=== PATIENT | female | born 1965 | race Caucasian/White ===

== ENCOUNTER → 2021-12-20 | Outpatient (CLI) | payer BC, SELFPAY ==
[2021-12-20 21:21] LABS: Absolute Lymphocyte Count 4.52 X10^3/uL (0.83-4.51); Absolute Neutrophil Count 5.8 X10^3/uL (2.0-7.7); Basophil# 0.07 X10^3/uL; Basophil% 0.6 % (0-1); Eosinophil# 0.12 X10^3/uL; Hematocrit 37.1 % (37-47); Hemoglobin 13.2 g/dL (12.0-15.0); Lymphocyte # 4.52 X10^3/ul (0.83-4.51); Lymphocyte % 38.8 % (19-41); Mean Corp Hgb Conc 35.6 g/dL (32-36); Mean Corpuscular Volume 89.8 fL (81-99); Mean Platelet Vol. 10.7 fl (6.2-12.0); Monocyte# 1.13 X10^3/uL; Monocyte% 9.7 % (0-10); NRBC Flagged by Analyzer 0 % (0-5); Neutrophil # 5.76 X10^3/uL (2.7-7.7); Neutrophil % 49.6 % (47-70); Platelet Count 375 K/mm3 (150-450); RBC Distribution Width CV 13.1 % (11.6-14.6); Red Blood Count 4.13 M/mm3 (4.2-5.4); White Blood Count 11.6 K/mm3 (4.4-11.0)
[2021-12-20 21:45] LABS: ALB/GLOB Ratio 1.2 RATIO (0.9-2.4); AST(SGOT) 16 U/L (15-37); Alanine Aminotransfer ALT/SGPT 28 U/L (13-56); Albumin, Serum 4.3 g/dL (3.2-5.0); Alkaline Phosphatase 58 U/L (45-117); Anion Gap 8 (5-15); BUN 12 mg/dL (7-18); BUN/Creat Ratio 14.8 RATIO (10-20); Calcium,Total 9.7 mg/dL (8.5-10.1); Chloride 98 mmol/L (98-107); Cholesterol 206 mg/dL (200); Creatinine, Serum 0.81 mg/dL (0.55-1.02); EST Glomerular Filtration Rate 77 mL/min (>60); Est Glom Filt Rate - Afr Amer 93 mL/min (>60); Globulin 3.6 g/dL (2.2-4.2); Glucose 98 mg/dL (74-106); High Density Lipoprotein 60 mg/dL; Protein, Total 7.9 g/dL (6.4-8.2); Sodium Level 134 mmol/L (136-145); Thyroid Stim Hormone (TSH) 0.88 uIU/mL (0.358-3.74); Triglycerides 156 mg/dL; Very Low Density Lipoprotein 31 mg/dL (5-40)
[2021-12-25 18:42] LABS: Vitamin D 1,25-Dihydroxy 22.4 pg/mL (24.8-81.5)
== END | disposition home or self-care (01) ==
PROVIDERS: Referring Provider Nurse Practitioner; Visit Provider Nurse Practitioner
DX: Z00.00 Encounter for general adult medical examination without abnormal findings (principal)
CPT/HCPCS: 80053; 80061; 82652; 84443; 85025

== ENCOUNTER → 2022-12-20 | Outpatient (CLI) | payer BC, SELFPAY ==
[2022-12-20 21:28] LABS: Absolute Lymphocyte Count 3.93 X10^3/uL (0.83-4.51); Basophil# 0.07 X10^3/uL; Basophil% 0.7 % (0-1); Eosinophil# 0.18 X10^3/uL; Eosinophils% 1.8 % (0-5); Hematocrit 38.3 % (37-47); Hemoglobin 12.9 g/dL (12.0-15.0); Lymphocyte # 3.93 X10^3/ul (0.83-4.51); Lymphocyte % 38.8 % (19-41); Mean Corp Hgb Conc 33.7 g/dL (32-36); Mean Corpuscular Hgb 30.9 pg (27.0-32.0); Mean Corpuscular Volume 91.8 fL (81-99); Mean Platelet Vol. 10.8 fl (6.2-12.0); Monocyte% 8.9 % (0-10); NRBC Flagged by Analyzer 0 % (0-5); Neutrophil # 5.02 X10^3/uL (2.7-7.7); Neutrophil % 49.5 % (47-70); Platelet Count 338 K/mm3 (150-450); RBC Distribution Width CV 13.2 % (11.6-14.6); RBC Distribution Width SD 44.4 fl (35.1-43.9); Red Blood Count 4.17 M/mm3 (4.2-5.4); White Blood Count 10.1 K/mm3 (4.4-11.0)
[2022-12-20 21:51] LABS: ALB/GLOB Ratio 1.1 RATIO (0.9-2.4); AST(SGOT) 15 U/L (15-37); Alanine Aminotransfer ALT/SGPT 27 U/L (13-56); Alkaline Phosphatase 60 U/L (45-117); Anion Gap 7 (5-15); BUN 8 mg/dL (7-18); BUN/Creat Ratio 10.7 RATIO (10-20); Calcium,Total 9.2 mg/dL (8.5-10.1); Chloride 103 mmol/L (98-107); Cholesterol 208 mg/dL (200); Creatinine, Serum 0.75 mg/dL (0.55-1.02); EST Glomerular Filtration Rate 85 mL/min (>60); Est Glom Filt Rate - Afr Amer 103 mL/min (>60); Globulin 3.6 g/dL (2.2-4.2); Glucose 101 mg/dL (74-106); High Density Lipoprotein 53 mg/dL; Potassium 2.9 mmol/L (3.5-5.1); Protein, Total 7.6 g/dL (6.4-8.2); Sodium Level 139 mmol/L (136-145); Thyroid Stim Hormone (TSH) 3.99 uIU/mL (0.358-3.74); Triglycerides 151 mg/dL; Very Low Density Lipoprotein 30 mg/dL (5-40)
== END | disposition home or self-care (01) ==
PROVIDERS: Visit Provider Nurse Practitioner
DX: Z00.00 Encounter for general adult medical examination without abnormal findings (principal)
CPT/HCPCS: 80053; 80061; 84443; 85025

== ENCOUNTER → 2023-04-12 | Outpatient (CLI) | payer BC, SELFPAY ==
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
[2023-04-12 22:18] LABS: Thyroid Stim Hormone (TSH) 0.84 uIU/mL (0.358-3.74)
== END | disposition home or self-care (01) ==
PROVIDERS: Referring Provider Nurse Practitioner; Visit Provider Nurse Practitioner
DX: E03.9 Hypothyroidism, unspecified (principal)
CPT/HCPCS: 84443

== ENCOUNTER → 2023-12-19 | Outpatient (CLI) | payer BC, SELFPAY ==
[2023-12-19 23:51] LABS: Absolute Lymphocyte Count 3.11 X10^3/uL (0.83-4.51); Absolute Neutrophil Count 4.3 X10^3/uL (2.0-7.7); Basophil# 0.04 X10^3/uL; Basophil% 0.5 % (0-1); Eosinophil# 0.06 X10^3/uL; Eosinophils% 0.7 % (0-5); Hematocrit 39.1 % (37-47); Hemoglobin 12.9 g/dL (12.0-15.0); Lymphocyte # 3.11 X10^3/ul (0.83-4.51); Lymphocyte % 37.9 % (19-41); Mean Corpuscular Hgb 29.9 pg (27.0-32.0); Mean Corpuscular Volume 90.7 fL (81-99); Mean Platelet Vol. 10.8 fl (6.2-12.0); Monocyte# 0.69 X10^3/uL; Monocyte% 8.4 % (0-10); NRBC Flagged by Analyzer 0 % (0-5); Neutrophil # 4.28 X10^3/uL (2.7-7.7); Neutrophil % 52.3 % (47-70); Platelet Count 325 K/mm3 (150-450); RBC Distribution Width CV 13.1 % (11.6-14.6); RBC Distribution Width SD 43.8 fl (35.1-43.9); Red Blood Count 4.31 M/mm3 (4.2-5.4); White Blood Count 8.2 K/mm3 (4.4-11.0)
[2023-12-20 00:15] LABS: ALB/GLOB Ratio 1.2 RATIO (0.9-2.4); AST(SGOT) 15 U/L (15-37); Alanine Aminotransfer ALT/SGPT 28 U/L (13-56); Alkaline Phosphatase 58 U/L (45-117); Anion Gap 7 (5-15); BUN 8 mg/dL (7-18); BUN/Creat Ratio 10.7 RATIO (10-20); Calcium,Total 9.5 mg/dL (8.5-10.1); Chloride 99 mmol/L (98-107); Cholesterol 209 mg/dL (200); Creatinine, Serum 0.75 mg/dL (0.55-1.02); EST Glomerular Filtration Rate 84 mL/min (>60); Est Glom Filt Rate - Afr Amer 102 mL/min (>60); Globulin 3.3 g/dL (2.2-4.2); Glucose 106 mg/dL (74-106); High Density Lipoprotein 57 mg/dL; Potassium 3.1 mmol/L (3.5-5.1); Protein, Total 7.3 g/dL (6.4-8.2); Sodium Level 135 mmol/L (136-145); Triglycerides 130 mg/dL; Very Low Density Lipoprotein 26 mg/dL (5-40)
== END | disposition home or self-care (01) ==
PROVIDERS: Referring Provider Nurse Practitioner; Visit Provider Nurse Practitioner
DX: Z00.00 Encounter for general adult medical examination without abnormal findings (principal)
CPT/HCPCS: 80053; 80061; 84443; 85025

== ENCOUNTER → 2025-01-02 | Outpatient (CLI) | payer BC, SELFPAY ==
--- OUTSIDE RECORDS SUMMARY | 2025-01-02 21:49 | XMS RPT_ITS | CCD ---
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 mg tablet Take 1 tablet by mouth every 8 hours as needed for pain. cholecalciferol, vitamin D3, (VITAMIN D3 ORAL) Take by mouth. amLODIPine (NORVASC) 10 mg tablet levothyroxine (SYNTHROID) 100 mcg tablet losartan (COZAAR) 100 mg tablet hydroCHLOROthiazide (HYDRODIURIL, ESIDRIX) 25 mg tablet oxyCODONE IR (ROXICODONE) 5 mg immediate release tablet Take 1 tablet by mouth every 6 hours as needed for pain for up to 3 days. Lactobacillus acidophilus (PROBIOTIC ORAL) Take by mouth. ascorbic acid, vitamin C, (VITAMIN C) 500 mg tablet Take by mouth. Lacto.acidophilus-Bif. animalis 32 billion cell cap Take by mouth. flaxseed oil (OMEGA 3 ORAL) Take by mouth. (Patient not taking: Reported on 05/10/2022) ZINC ORAL Take by mouth. MAGNESIUM ORAL Take by mouth. MELATONIN ORAL Take by mouth. potassium chloride SR (MICRO-K) 10 mEq CR capsule I have interviewed and examined the patient. I have reviewed the medical record and/or the pre-anesthesia evaluation, pertinent labs, and test results. This contains updated information obtained within 48 hours of Surgery/Procedure. SIGNATURE: Sander Sandoval MD PATIENT NAME: Sharifa Kyle DATE: December 18, 2024 TIME: 12:59 PM CSN: [id number] [facility] BRIEF OP NOTon 12-18-2024 BRIEF OP NOT HNO ID: [id number] Author: ISAIAH BOLES MD Service: Orthopaedic Surgery Author Type: Physician Type: Brief Op Note Filed: 12/18/2024 16:32 Note Text: BRIEF OPERATIVE / PROCEDURE NOTE LOG ID: [id number] SURGERY/PROCEDURE DATE: 12/18/2024 INCISION/PROCEDURE START TIME: 3:09 PM INCISION CLOSE/PROCEDURE END TIME: 4:30 PM SURGEON(S)/PROCEDURALI ST(S) AND LYE MACHINE OPERATOR(S): Surgeons and Role: * Isaiah Boles MD - Primary * John Sterling MD - Resident - Assisting * Juan Rice MD - Resident - Assisting No Additional Staff SURGERY/PROCEDURE(S): 1) ORIF Right Proximal Humerus Fracture ANESTHESIA: General FINDINGS: See operative report for full details FLUIDS: Per anesthesia documentation ESTIMATED BLOOD LOSS: 150 mls ANTIBIOTICS: Ancef 2g IV SPECIMENS: None COMPLICATIONS: None PRE-OP/PRE-PROCEDURE DIAGNOSIS: 1) Four-Part Right Proximal Humerus Fracture, Closed POST-OP/POST-PROCEDURE DIAGNOSIS: 1) Four-Part Right Proximal Humerus Fracture, Closed Post-Operative Plan: -Management per orthopaedic trauma surgery -Sling to the right upper extremity -PT/OT: Non-weightbearing with the right upper extremity -Radha-Operative Antibiotics: Ancef 2g IV -DVT PPX: SCDs; ambulation/mobilizatio n -Post-Operative Imaging: None -Santos: None -Consults: None -Dressings: Mepilex dressing to the right shoulder for 10 days -Pain control; ice to the right shoulder -Disposition: Discharge to home with outpatient orthopaedic follow-up in 3-4 weeks Isaiah Boles MD Orthopaedic Surgery 12/18/2024 4:31 PM [facility] HISTORY PHYSICALon HISTORY PHYSICAL HNO ID: [id number] Author: ISAIAH BOLES MD Service: Orthopaedic Surgery Author Type: Physician Type: H&P Filed: 12/18/2024 14:14 Note Text: ORTHOPAEDIC SURGERY HISTORY AND PHYSICAL Pt: SHARIFA KYLE Date of Service: 12/18/2024 Chief Complaint: Right Proximal Humerus Fracture HPI: 59 year old female sustained a right proximal humerus fracture on 12/15/2024 after a fall. The patient reports severe pain to the right shoulder. The patient denies fevers and chills. The patient has no additional orthopaedic traumatic complaints this time. PAST MEDICAL HISTORY Diagnosis Date Hypertension Thyroid disease PAST SURGICAL HISTORY Procedure Laterality Date HAND SURGERY HX Allergies: Amoxicillin, Codeine, and Venom-Honey Bee No current facility-administered medications for this encounter. FAMILY HISTORY Problem Relation Age of Onset Emphysema Father Heart Sister Negative for family history of bleeding and clotting disorders. SOCIAL HISTORY[1] ROS: 10 pt ROS neg except in HPI O: Vitals: BP 185/95 Pulse 97 Temp 37 ?C (98.6 ?F) (Skin) Resp 18 SpO2 95% Physical Exam: General: AANDO x 3; NAD. Cooperative throughout entire interview Heart: Regular rate and rhythm Chest: Clear to auscultation bilaterally Right Upper Extremity: There are no open wounds nor lacerations about the right shoulder. Compartments of the arm and forearm are soft and compressible. The patient has active AIN (thumb interphalangeal joint flexion), PIN (thumb extension) and ulnar (finger abduction and adduction) motor function. Sensation intact to light touch in the median, radial and ulnar nerve distributions. Brisk capillary refill to the digits of the hand. Labs: BMP: Sodium 134 03/15/2024 Potassium 2.8 03/15/2024 Chloride 95 03/15/2024 CO2 27 03/15/2024 BUN 8 03/15/2024 Creatinine 0.70 03/15/2024 Glucose 122 03/15/2024 CBC: WBC 8.49 03/15/2024 Hemoglobin 13.5 03/15/2024 Hematocrit 39.2 03/15/2024 Platelet Count 320 03/15/2024 Imaging: -X-rays of the right shoulder and CT of the right shoulder from 12/17/2024 demonstrate a comminuted and displaced four-part proximal humerus fracture. A/P: 59 year old female with a right four-part proximal humerus fracture. -Management per orthopaedic trauma surgery -NPO -The risks, limitations, benefits and alternatives to all treatment options including non-operative and operative management of the patient's right proximal humerus fracture were discussed with the patient. The risks of the operation include, but are not limited to, the risks associated with general anesthesia, infection, bleeding, damage to nearby structures (such as arteries, veins, nerves, muscle, tendons, ligaments), chronic pain, post-traumatic arthritis, avascular necrosis, loss of right shoulder range of motion, malunion, nonunion, deep venous thromboses, pulmonary embolism, hardware failure and the need for future operations. The patient elected to proceed with open reduction internal fixation of the right proximal humerus fracture. All questions and concerns were answered and addressed. The informed consent was reviewed. Isaiah Boles MD Orthopaedic Surgery 12/18/2024 2:07 PM [1] Social History Tobacco Use Smoking status: Never Smokeless tobacco: Never Vaping Use Vaping status: Never Used Substance Use Topics Alcohol use: Yes Comment: seldom Drug use: No [facility] NURSING PROGon 12-18-2024 NURSING PROG HNO ID: [id number] Author: MANNY LEBRON RN Service: Nursing Author Type: Registered Nurse Type: Nursing Progress Note Filed: 12/18/2024 20:04 Note Text: Dr Marshall bedside to evaluate patient o2. Has been on RA for 30 min. 93-95%. No complaints from patient. Okay to go home. Pt instructed on continued IS use at home [facility] OPERATIVE NOon 12-18-2024 OPERATIVE NO HNO ID: [id number] Author: ISAIAH BOLES MD Service: Orthopaedic Surgery Author Type: Physician Type: Operative Report Filed: 12/19/2024 06:58 Note Text: OPERATIVE/PROCEDURE REPORT LOG ID: [id number] SURGERY/PROCEDURE DATE: 12/18/2024 INCISION/PROCEDURE START TIME: 3:09 PM INCISION CLOSE/PROCEDURE END TIME: 4:30 PM SURGEON(S)/PROCEDURALI ST(S) AND LYE MACHINE OPERATOR(S): Surgeons and Role: * Isaiah Boles MD - Primary * John Sterling MD - Resident - Assisting * Juan Rice MD - Resident - Assisting No Additional Staff PRE-OP/PRE-PROCEDURE DIAGNOSIS: 1) Right Proximal Humerus Fracture, Closed POST-OP/POST-PROCEDURE DIAGNOSIS: 1) Right Proximal Humerus Fracture, Closed 2) Right Biceps Tendon Injury SURGERY/PROCEDURE(S): 1) Open Treatment of the Right Proximal Humerus Fracture with Internal Fixation Including Repair of the Tuberosities (CPT 89924) 2) Tenodesis of Long Tendon of the Right Biceps (CPT 81982) ANESTHESIA: 1) General ANTIBIOTICS: 1) Ancef 2g IV ESTIMATED BLOOD LOSS: 1) 150 CC FLUIDS: 1) Per Anesthesia Documentation SPECIMENS: 1) None CLINICAL INDICATIONS: 59 year old female sustained a right proximal humerus fracture on 12/15/2024 after a fall. The risks, limitations, benefits and alternatives to all treatment options including non-operative and operative management of the patient's right proximal humerus fracture were discussed with the patient. The risks of the operation include, but are not limited to, the risks associated with general anesthesia, infection, bleeding, damage to nearby structures (such as arteries, veins, nerves, muscle, tendons, ligaments), chronic pain, post-traumatic arthritis, loss of right shoulder range of motion, avascular necrosis, malunion, nonunion, deep venous thromboses, pulmonary embolism, hardware failure and the need for future operations. The patient elected to proceed with open reduction internal fixation of the right proximal humerus fracture. All questions and concerns were answered and addressed. The informed consent was signed. SURGERY/PROCEDURE DETAILS: The patient was met in the pre-operative holding area on 12/18/2024. A pre-operative huddle was conducted with the surgical team. The patient was identified with two patient identifiers (name and date of ). The patient's operative site (right shoulder) was marked. The pre-operative checklist, including review of the informed consent, was reviewed and agreed upon by all members of the surgical team. The patient was transferred to the operating room. The patient was intubated by anesthesia (endotracheal intubation) and positioned supine on a radiolucent table with attention to padding of bony prominences. The patient's right upper extremity and shoulder were pre-cleansed with alcohol, sterilely prepped (ChloraPrep) and draped in standard orthopaedic fashion. A final time out was then conducted in accordance with [facility] General policy. After all members of the surgical team agreed upon the details of the procedure, a deltopectoral approach to the right shoulder was performed with a scalpel. Hemostasis was achieved with electrocautery. The interval between the pectoralis major and the deltoid was developed. Dissection was performed deep. The proximal humerus fracture was identified, delineated with a scalpel and thoroughly irrigated with sterile saline. There was comminution noted to the humeral neck, lesser tuberosity and greater tuberosity. The biceps tendon was found to be partially lacerated by the humeral neck fracture. The biceps tendon was tenodesed to the pectoralis insertion on the humeral shaft with FiberWire suture. The proximal remnant of the biceps tendon was excised. Reduction maneuvers were performed to the proximal humerus fracture using pointed reduction forceps and FiberWire sutures advanced through the rotator cuff insertion on the greater tuberosity fracture fragments and the lesser tuberosity fracture fragments. The reduction was temporarily maintained with multiple 1.6 mm K-wires. AP and lateral right shoulder radiographs demonstrated acceptable fracture reduction. A 3-hole Nazlini proximal humerus plate was applied to the lateral proximal humerus. The plate position was confirmed on AP and lateral right shoulder radiographs. The plate was secured to the humeral shaft with two cortical screws and one locking screw. The plate was secured proximally with nine locking screws into the humeral head. The FiberWire sutures in the rotator cuff insertion on the greater tuberosity fracture fragments and the lesser tuberosity fracture fragments were advanced through the proximal humerus plate and secured over the plate to augment the fixation. Final AP and lateral right shoulder radiographs demonstrated acceptable length, alignment and rotation of the right proximal humerus fracture with acceptable (more content not included)... [facility] XR SHOULDER 2V AP/TRUE AP RT on 12-18-2024 XR SHOULDER 2V AP/TRUE AP RT * * *Final Report* * * DATE OF EXAM: Dec 18 2024 4:19PM BRANDY [id number] - XR SHOULDER 2V AP/TRUE AP RT / PROCEDURE REASON: ORIF * * * * Physician Interpretation * * * * FLUOROSCOPY AND IMAGING: CLINICAL INDICATION: Right proximal humerus fracture. ORIF right proximal humerus fracture. COMPARISON: Right shoulder radiographs 12/17/2024 and 12/15/[address] right shoulder 12/17/2024. FINDINGS: Five fluoroscopic images for intraoperative fluoroscopic guidance. Fluoroscopic Radiation Summary: Plane A, Air Kerma: 9.6 mGy Dose Area Product (DAP): 1905.0 mGy*cm2 Fluoro time: 1:25 min:sec Number of image acquisitions: 5 IMPRESSION: Documentation of intraoperative fluoroscopic guidance as above. Correlate with operative report. Field Observer: MALIA Transcribe Date/Time: Dec 19 2024 6:59A Dictated by : ASAD GOLDEN MD This examination was interpreted and the report reviewed and electronically signed by: ASAD GOLDEN MD on Dec 19 2024 7:05AM EST [id number] [facility] CNOVon 12-17-2024 CNOV Office Visit (AGHWW1 ) SHARIFA KYLE ([id number]) 1965 F Date Time Provider Department 12/17/24 9:45 AM JARAD SEGOVIA [id number] During your visit today, we recorded the following information about you: Respiration Weight Height 18/minute 84.4 kg 1.6 m Jarad Segovia MD 12/17/2024 12:12 PM Signed ORTHOPAEDIC SHOULDER AND ELBOW SERVICE HISTORY AND PHYSICAL EXAM REFERRING PROVIDER: No referring provider defined for this encounter. CHIEF COMPLAINT: The patient is a 59-year-old female presenting for evaluation of a displaced right shoulder fracture. PAIN EVALUATION 12/17/2024 0944 Pain Level: 10 Pain Location: -- r shoulder Description: -- aching Duration Amount of Time: -- 2 Duration Units: Days Frequency: Continuous Sharifa Kyle is a 59-year-old female presenting for evaluation of a right shoulder fracture sustained during a fall. Right Shoulder Fracture: - Sustained a right shoulder fracture on Monday. - Incident occurred while walking two large dogs in a park in [place]; Sharifa lost footing on steps and fell. - Landed with arm extended, impacting the shoulder. - Denies sensation of shoulder dislocation. - Experiencing significant pain, affecting sleep. - Currently using a sling for support. - Taking prescribed extra strength Tylenol and ibuprofen 800 mg for pain management. - History of bilateral knee replacements and spinal surgery with rods and screws. PAST MEDICAL HISTORY: PAST MEDICAL HISTORY Diagnosis Date Hypertension Thyroid disease PAST SURGICAL HISTORY: PAST SURGICAL HISTORY Procedure Laterality Date HAND SURGERY HX SOCIAL HISTORY: SOCIAL HISTORY[1] ALLERGIES: ALLERGIES Allergen Reactions Amoxicillin Rash Codeine Rash Venom-Honey Bee Swelling MEDICATIONS: Current Outpatient Medications on File Prior to Visit Medication Sig cholecalciferol, vitamin D3, (VITAMIN D3 ORAL) Take by mouth. Lactobacillus acidophilus (PROBIOTIC ORAL) Take by mouth. amLODIPine (NORVASC) 10 mg tablet ascorbic acid, vitamin C, (VITAMIN C) 500 mg tablet Take by mouth. Lacto.acidophilus-Bif. animalis 32 billion cell cap Take by mouth. ZINC ORAL Take by mouth. MAGNESIUM ORAL Take by mouth. MELATONIN ORAL Take by mouth. levothyroxine (SYNTHROID) 100 mcg tablet losartan (COZAAR) 100 mg tablet potassium chloride SR (MICRO-K) 10 mEq CR capsule hydroCHLOROthiazide (HYDRODIURIL, ESIDRIX) 25 mg tablet acetaminophen (TYLENOL EXTRA STRENGTH) 500 mg tablet Take 2 tablets by mouth every 8 hours as needed for pain. ibuprofen (MOTRIN) 800 mg tablet Take 1 tablet by mouth every 8 hours as needed for pain. oxyCODONE IR (ROXICODONE) 5 mg immediate release tablet Take 1 tablet by mouth every 6 hours as needed for pain for up to 3 days. flaxseed oil (OMEGA 3 ORAL) Take by mouth. (Patient not taking: Reported on 05/10/2022) No current facility-administered medications on file prior to visit. PHYSICAL EXAMINATION: Resp 18 Ht 160 cm (5' 3) Wt 84.4 kg (186 lb) BMI 32.95 kg/m? EXAM: Shoulder Musculoskeletal Exam Inspection Right Ecchymosis: moderate Peripheral edema: mild Atrophy: none Symmetry: symmetric Masses: none Palpation Right Crepitus: no crepitus Increased warmth: none Tenderness: present Anterior shoulder: moderate Posterior shoulder: moderate Clavicle: none AC joint: none Sternoclavicular joint: none Rotator cuff: mild Greater tuberosity: moderate Trapezius: mild Medial scapula: none Superior pole of scapula: none Inferior pole of scapula: none Bicipital groove: moderate Proximal biceps: moderate Range of Motion Right Active ROM: abnormal and pain. Passive ROM: abnormal and pain. Neurovascular Right Right shoulder nerve sensation is normal. Axillary nerve sensory distribution: normal Scapula Right Right shoulder scapula is normal. Position: normal General Constitutional: appears stated age Labored breathing: no Psychiatric: normal mood and affect and no acute distress Neurological: alert and oriented x3 Skin: intact IMAGING: I ordered and interpreted radiographs of the right shoulder including AP, outlet, axillary views. There is a displaced greater tuberosity fracture with wide separation. Possible comminuted lesser tuberosity fracture. No obvious humeral neck fracture. ASSESSMENT AND PLAN: Encounter Diagnosis ICD-10-CM 1. Right shoulder pain, unspecified chronicity M25.511 XR SHOULDER 3V AP/Y VIEW/AXILLARY RIGHT (AK) 2. Closed fracture of right shoulder, initial encounter S42.91XA CT SHOULDER WO IVCON RIGHT 3. Closed displaced fracture of greater tuberosity of right humerus, initial encounter S42.251A 1. Right shoulder pain, unspecified chronicity (M25.511) 2. Closed fracture of right shoulder, initial encounter (S42.91XA) 3. Closed displaced fracture (more content not included)... [facility] Eliu 12-17-2024 DAVIDN Telephone (AGPOB1) SHARIFA KYLE ([id number]) 1965 F Date Time Provider Department 12/17/24 ISAIAH BOLES AGPOB1 During your visit today, we recorded the following information about you: Flakita Garcia 12/17/2024 3:54 PM Signed I called patient and talked to her and her . They are aware they will get a call in the am with the arrival time. Have you completed the OME Survey via [employer]? unknown Procedure is scheduled for:12-18 @ ? Arrival time:? NPO after midnight. Please bring walker, crutches, braces or slings if applicable. 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 for pain. - acetaminophen (TYLENOL EXTRA STRENGTH) 500 mg tablet Take 2 tablets by mouth every 8 hours as needed for pain. - ibuprofen (MOTRIN) 800 mg tablet Take 1 tablet by mouth every 8 hours as needed for pain. - oxyCODONE IR (ROXICODONE) 5 mg immediate release tablet Take 1 tablet by mouth every 6 hours as needed for pain for up to 3 days. - cholecalciferol, vitamin D3, (VITAMIN D3 ORAL) Take by mouth. - Lactobacillus acidophilus (PROBIOTIC ORAL) Take by mouth. - amLODIPine (NORVASC) 10 mg tablet - ascorbic acid, vitamin C, (VITAMIN C) 500 mg tablet Take by mouth. - Lacto.acidophilus-Bif. animalis 32 billion cell cap Take by mouth. - flaxseed oil (OMEGA 3 ORAL) Take by mouth. - ZINC ORAL Take by mouth. - MAGNESIUM ORAL Take by mouth. - MELATONIN ORAL Take by mouth. - levothyroxine (SYNTHROID) 100 mcg tablet - losartan (COZAAR) 100 mg tablet - potassium chloride SR (MICRO-K) 10 mEq CR capsule - hydroCHLOROthiazide (HYDRODIURIL, ESIDRIX) 25 mg tablet Problem List As Of Date: 12/17/2024 (None) Encounter Status:Closed by FLAKITA GARCIA on 12/17/24 [facility] CT SHOULDER WO IVCON RTon CT SHOULDER WO IVCON RT * * *Final Report* * * DATE OF EXAM: Dec 17 2024 6:38PM [facility] 0090 - CT SHOULDER WO IVCON RT / PROCEDURE REASON: Closed fracture of right shoulder, initial encounter * * * * Physician Interpretation * * * * CT RIGHT SHOULDER WITHOUT IV CONTRAST: CLINICAL INDICATION: 59-year-old female with right shoulder fracture following recent mechanical fall. TECHNIQUE: A series of axial CT images are obtained of the right shoulder from above the acromioclavicular joint through the scapula with coronal and sagittal reformations. CT Radiation dose: Integrated Dose-length product (DLP) for this visit = 412 mGy*cm. CT Dose Reduction Employed: No dose reduction techniques were required COMPARISON: Right shoulder radiographs 12/17/2024 and 12/15/[address] chest 11/01/2021. FINDINGS: Acute, comminuted, mild impacted fracture of the humeral head and neck. Comminuted lesser tuberosity fracture. Comminuted, mild displaced greater tuberosity fracture. Glenohumeral articulation is maintained. There are discrete sclerotic foci within the humeral head and bony glenoid, likely bone islands. Acromioclavicular articulation is maintained. There is no acute scapular fracture. There is skin thickening and infiltration of subcutaneous fat anterior proximal upper arm. IMPRESSION: Comminuted fracture of the humeral head/neck. A stat reading is made available at time of dictation as requested.. Field Observer: PSCB Transcribe Date/Time: Dec 18 2024 8:12A Dictated by : ASAD GOLDEN MD This examination was interpreted and the report reviewed and electronically signed by: ASAD GOLDEN MD on Dec 18 2024 8:33AM EST [id number] [facility] ALLIED HEALTHon 12-15-2024 ALLIED HEALTH HNO ID: [id number] Author: ?, ?, ? Service: ? Author Type: ? Type: Allied Health Filed: 12/15/2024 15:33 Note Text: Radiology Service Progress Note PATIENT NAME: Sharifa Kyle DATE OF SERVICE: December 15, 2024 TIME: 3:33 PM PATIENT IDENTITY VERIFICATION COMPLETED USING TWO (2) IDENTIFIERS: Name and Date of confirmed by patient verbally and Name and Date of confirmed by identification band. FALL SCREENING: Has the patient had 2 falls in the last year or 1 fall with injury or currently using an Ambulatory Assistive Device (Walker, Cane, Wheelchair, Crutches, etc.)? Emergency Room Patient: Screened in ED PATIENT GENDER DATA: Assigned female at . status: : No status: NO. PATIENT RELEVANT IMPLANT DATA REVIEWED: Not Applicable PATIENT PRESENTS WITH AN IMPLANTABLE OR ATTACHED ELECTRICIAN HELPER: No RADIOLOGY DEPARTMENT: General X-ray: Exam(s) Completed: Upper Extremity X-Ray(s): Shoulder, AP / TRUE AP right PERIPHERAL IV DATA: Not applicable SIGNED BY: Amrita Green December 15, 2024 3:33 PM [facility] ED PROV NOTEon 12-15-2024 ED PROV NOTE HNO ID: [id number] Author: PAULA GOLD PA-C Service: Emergency Medicine Author Type: Physician Vessel Operator Type: ED Provider Notes Filed: 12/15/2024 16:34 Note Text: ED Provider Note Patient Name: Sharifa Kyle : 1965 SERVICE DATE: 12/15/24 History Patient presents with: Fall Shoulder Injury: Pt presents to the ED from a trail. Pt was walking her dog and he went down some concrete steps too fast and she fell forward and thinks she dislocated her shoulder. Pt denies head injury or LOC. Pt has no other complaints at this time. 59-year-old white female that presents to the emergency room with her via personal vehicle for concerns of a dislocated right shoulder. The patient states that she was in [place] just prior to arrival and her large dog pulled her down some concrete steps. The patient states that when she felt her right upper extremity was in an extended position. The patient is right-handed dominant. She denies any head strike or loss consciousness. No neck or back pain. No other complaints or injuries. She does have a history of thyroid disease and hypertension. 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 Right shoulder injury All other systems reviewed and are negative. Physical Exam Vitals [12/15/24 1451] BP Pulse Temp Temp src Resp SpO2 Weight Height 152/85 88 36.4 ?C (97.6 ?F) Oral 18 99 % 84.4 kg (186 lb) -- Physical Exam Vitals and nursing note reviewed. Exam conducted with a inserter present (Staff and ). Constitutional: General: She is awake. She is in acute distress. Appearance: Normal appearance. She is well-developed, well-groomed and normal weight. She is not ill-appearing, toxic-appearing or diaphoretic. HENT: Head: Normocephalic and atraumatic. Jaw: There is normal jaw occlusion. Right Ear: Hearing, tympanic membrane, ear canal and external ear normal. Left Ear: Hearing, tympanic membrane, ear canal and external ear normal. Nose: Nose normal. Mouth/Throat: Lips: [place]. Mouth: Mucous membranes are moist. Pharynx: Oropharynx is clear. Uvula midline. Eyes: General: Lids are normal. Vision grossly intact. Extraocular Movements: Extraocular movements intact. Conjunctiva/sclera: Conjunctivae normal. Pupils: Pupils are equal, round, and reactive to light. Neck: Trachea: Trachea and phonation normal. Meningeal: Brudzinski's sign and Kernig's sign absent. Cardiovascular: Rate and Rhythm: Normal rate and regular rhythm. Pulses: Normal pulses. Dorsalis pedis pulses are 2+ on the right side and 2+ on the left side. Posterior tibial pulses are 2+ on the right side and 2+ on the left side. Heart sounds: Normal heart sounds. No murmur heard. Pulmonary: Effort: Pulmonary effort is normal. Breath sounds: Normal breath sounds and air entry. No stridor. Abdominal: General: Abdomen is flat. Bowel sounds are normal. Palpations: Abdomen is soft. Tenderness: There is no abdominal tenderness. Musculoskeletal: Right shoulder: Swelling, tenderness and bony tenderness present. No deformity, effusion, laceration or crepitus. Decreased range of motion. Normal strength. Normal pulse. Right upper arm: Normal. Right elbow: Normal. Right forearm: Normal. Right wrist: Normal. Right hand: Normal. Arms: Cervical back: Full passive range of motion without pain, normal range of motion and neck supple. Right lower leg: No edema. Left lower leg: No edema. Lymphadenopathy: Cervical: No cervical adenopathy. Skin: General: Skin is warm and dry. Capillary Refill: Capillary refill takes less than 2 seconds. Findings: No rash. Neurological: General: No focal deficit present. Mental Status: She is alert and oriented to person, place, and time. Mental status is at baseline. GCS: GCS eye subscore is 4. GCS verbal subscore is 5. GCS motor subscore is 6. Cranial Nerves: No cranial nerve deficit. Sensory: Sensation is intact. Motor: Motor function is intact. Coordination: Coordination is intact. Gait: Gait is intact. Comments: Normal neuro exam, at baseline Psychiatric: Attention and Perception: Attention and perception normal. Mood and Affect: Mood and affect normal. Speech: Speech normal. Behavior: Behavior normal. Behavior is cooperative. Thought Content: Thought content normal. Cognition and Memory: Cognition and memory normal. Judgment: Judgment normal. Diagnostic Testing ED Labs Ordered and Reviewed - No data to displa (more content not included)... Normal [facility] XR SHLDR >/=3V AP/AGGIE AP/OTH R RTon 12-15-2024 XR SHLDR >/=3V AP/AGGIE AP/OTHR RT * * *Final Report* * * DATE OF EXAM: Dec 15 2024 3:29PM MDX 5253 - XR SHLDR >/=3V AP/AGGIE AP/OTHR RT / PROCEDURE REASON: Trauma * * * * Physician Interpretation * * * * EXAMINATION: XR SHLDR >/=3V AP/AGGIE AP/OTHR RT CLINICAL HISTORY: Trauma Technique: XR SHLDR >/=3V AP/AGGIE AP/OTHR RT -- NOT APPLICABLE with 3 views on 3 images Comparison: None RESULT: Comminuted fracture of the right humeral head. No dislocation. Joint spaces are maintained. IMPRESSION: Comminuted fracture of the right humeral head Field Observer: MALIA Transcribe Date/Time: Dec 15 2024 4:02P Dictated by : CUCA GARAY MD This examination was interpreted and the report reviewed and electronically signed by: CUCA GARAY MD on Dec 15 2024 4:03PM EST [id number] [facility] ALLIED HEALTHon 03-15-2024 [facility] HNO ID: [id number] Author: CLARISSA VIGIL RT(R) Service: Radiology Author Type: Technologist Type: Allied Health Filed: 03/15/2024 12:56 Note Text: Radiology Service Progress Note PATIENT NAME: Sharifa Kyle DATE OF SERVICE: March 15, 2024 TIME: 12:56 PM PATIENT IDENTITY VERIFICATION COMPLETED USING TWO (2) IDENTIFIERS: Name and Date of confirmed by patient verbally. FALL SCREENING: Has the patient had 2 falls in the last year or 1 fall with injury or currently using an Ambulatory Assistive Device (Walker, Cane, Wheelchair, Crutches, etc.)? Emergency Room Patient: Screened in ED PATIENT GENDER DATA: Assigned female at . status: : No status: NO. PATIENT RELEVANT IMPLANT DATA REVIEWED: Not Applicable PATIENT PRESENTS WITH AN IMPLANTABLE OR ATTACHED ELECTRICIAN HELPER: No RADIOLOGY DEPARTMENT: General X-ray: Exam(s) Completed: Chest X-Ray PERIPHERAL IV DATA: Not applicable SIGNED BY: RT Yanni(R) March 15, 2024 12:56 PM [facility] CBC W Auto Differential pane l (Bld)on 03-15-2024 Basophils (Bld) [#/Vol] 0.06 10*3/uL Normal <0.11 [facility] Comment on above: Order Comment: Speci cuco Type: BLOOD SPECIMEN Ordering Facility: [facility] Address: [address] [place] [address] Performed By: #### 5 7021-8 #### [facility] CLIA [id number] [address] [place] [id number] [place] Basophils/100 WBC (Bld) 0.7 % Normal [facility] Comment on above: Order Comment: Speci men Type: BLOOD SPECIMEN Ordering Facility: [facility] Address: [address] [place] [address] Performed By: #### 5 7021-8 #### [facility] CLIA [id number] [address] Differential cell count method Nom (Bld) Auto Normal [facility] Comment on above: Order Comment: Speci men Type: BLOOD SPECIMEN Ordering Facility: [facility] Address: [address] [place] [address] Performed By: #### 5 7021-8 #### [facility] CLIA [id number] [address] [place] [address] [place] Eosinophils (Bld) [#/Vol] 10*3/uL Normal <0.46 [facility] Comment on above: Order Comment: Speci men Type: BLOOD SPECIMEN Ordering Facility: [facility] Address: [address] [place] [address] Performed By: #### 5 7021-8 #### [facility] CLIA [id number] [address] [place] Eosinophils/100 WBC (Bld) 0.1 % Normal [facility] Comment on above: Order Comment: Speci men Type: BLOOD SPECIMEN Ordering Facility: [facility] Address: [address] [place] [address] Performed By: #### 5 7021-8 #### [facility] CLIA [id number] [address] [place] Erythrocyte distribution width (RBC) [Ratio] 13.2 % Normal 11.5-15.0 [facility] Comment on above: Order Comment: Speci men Type: BLOOD SPECIMEN Ordering Facility: [facility] Address: [address] [place] [address] Performed By: #### 5 7021-8 #### [facility] CLIA [id number] [address] [place] Hematocrit (Bld) [Volume fraction] 39.2 % Normal 36.0-46.0 [facility] Comment on above: Order Comment: Speci men Type: BLOOD SPECIMEN Ordering Facility: [facility] Address: [address] [place] [address] Performed By: #### 5 7021-8 #### [facility] CLIA [id number] [address] [place] [address] [place] Hemoglobin (Bld) [Mass/Vol] 13.5 g/dL Normal 11.5-15.5 [facility] Comment on above: Order Comment: Speci men Type: BLOOD SPECIMEN Ordering Facility: [facility] Address: [address] [place] [address] Performed By: #### 5 7021-8 #### [facility] CLIA [id number] [address] [place] [address] [place] Immature granulocytes (Bld) [#/Vol] 0.03 10*3/uL Normal <0.10 [facility] Comment on above: Order Comment: Speci men Type: BLOOD SPECIMEN Ordering Facility: [facility] Address: [address] [place] [address] Performed By: #### 5 7021-8 #### [facility] CLIA [id number] [address] [place] Immature granulocytes/100 WBC (Bld) 0.4 % Normal [facility] Comment on above: Order Comment: Speci men Type: BLOOD SPECIMEN Ordering Facility: [facility] Address: [address] [place] [address] Performed By: #### 5 7021-8 #### [facility] CLIA [id number] [address] [place] Lymphocytes (Bld) [#/Vol] 1.49 10*3/uL Normal 1.00-4.00 [facility] Comment on above: Order Comment: Speci men Type: BLOOD SPECIMEN Ordering Facility: [facility] Address: [address] [place] [address] Performed By: #### 5 7021-8 #### [facility] CLIA [id number] [address] [place] Lymphocytes/100 WBC (Bld) 17.6 % Normal [facility] Comment on above: Order Comment: Speci men Type: BLOOD SPECIMEN Ordering Facility: [facility] Address: [address] [place] [address] Performed By: #### 5 7021-8 #### [facility] CLIA [id number] [address] MCH (RBC) [Entitic mass] 30.5 pg Normal 26.0-34.0 [facility] Comment on above: Order Comment: Speci men Type: BLOOD SPECIMEN Ordering Facility: [facility] Address: [address] [place] [address] Performed By: #### 5 7021-8 #### [facility] CLIA [id number] [address] [place] MCHC (RBC) [Mass/Vol] 34.4 g/dL Normal 30.5-36.0 [facility] Comment on above: Order Comment: Speci men Type: BLOOD SPECIMEN Ordering Facility: [facility] Address: [address] [place] [address] Performed By: #### 5 7021-8 #### [facility] CLIA [id number] [address] MCV (RBC) [Entitic vol] 88.5 fL Normal 80.0-100.0 [facility] Comment on above: Order Comment: Speci men Type: BLOOD SPECIMEN Ordering Facility: [facility] Address: [address] [place] [address] Performed By: #### 5 7021-8 #### [facility] CLIA [id number] [address] [place] Monocytes (Bld) [#/Vol] 1.09 10*3/uL High <0.87 [facility] Comment on above: Order Comment: Speci men Type: BLOOD SPECIMEN Ordering Facility: [facility] Address: [address] [place] [address] Performed By: #### 5 7021-8 #### [facility] CLIA [id number] [address] Monocytes/100 WBC (Bld) 12.8 % Normal [facility] Comment on above: Order Comment: Speci men Type: BLOOD SPECIMEN Ordering Facility: [facility] Address: [address] [place] [address] Performed By: #### 5 7021-8 #### [facility] CLIA [id number] [address] [place] [address] [place] Neutrophils (Bld) [#/Vol] 5.81 10*3/uL Normal 1.45-7.50 [facility] Comment on above: Order Comment: Speci men Type: BLOOD SPECIMEN Ordering Facility: [facility] Address: [address] [place] [address] Performed By: #### 5 7021-8 #### [facility] CLIA [id number] [address] [place] Neutrophils/100 WBC (Bld) 68.4 % Normal [facility] Comment on above: Order Comment: Speci men Type: BLOOD SPECIMEN Ordering Facility: [facility] Address: [address] [place] [address] Performed By: #### 5 7021-8 #### [facility] CLIA [id number] [address] [place] Nucleated RBC (Bld) [#/Vol] 10*3/uL Normal <0.01 [facility] Comment on above: Order Comment: Speci men Type: BLOOD SPECIMEN Ordering Facility: [facility] Address: [address] [place] [address] Performed By: #### 5 7021-8 #### [facility] CLIA [id number] [address] OF [facility] Nucleated RBC/100 WBC (Bld) [Ratio] 0.0 /100 WBC Normal [facility] Comment on above: Order Comment: Speci men Type: BLOOD SPECIMEN Ordering Facility: [facility] Address: [address] [place] [address] Performed By: #### 5 7021-8 #### [facility] CLIA [id number] [address] [place] Platelet mean volume (Bld) [Entitic vol] 10.0 fL Normal 9.0-12.7 [facility] Comment on above: Order Comment: Speci men Type: BLOOD SPECIMEN Ordering Facility: [facility] Address: [address] [place] [address] Performed By: #### 5 7021-8 #### [facility] CLIA [id number] [address] [place] Platelets (Bld) [#/Vol] 320 10*3/uL Normal 150-400 [facility] Comment on above: Order Comment: Speci men Type: BLOOD SPECIMEN Ordering Facility: [facility] Address: [address] [place] [address] Performed By: #### 5 7021-8 #### [facility] CLIA [id number] [address] [place] RBC (Bld) [#/Vol] 4.43 10*6/uL Normal 3.90-5.20 [facility] Comment on above: Order Comment: Speci men Type: BLOOD SPECIMEN Ordering Facility: [facility] Address: [address] [place] [address] Performed By: #### 5 7021-8 #### [facility] CLIA [id number] [address] OF [facility] WBC (Bld) [#/Vol] 8.49 10*3/uL Normal 3.70-11.00 [facility] Comment on above: Order Comment: Speci men Type: BLOOD SPECIMEN Ordering Facility: [facility] Address: [address] [place] [address] Performed By: #### 5 7021-8 #### [facility] CLIA [id number] [address] Comprehensive metabolic 2000 panelon 03-15-2024 Albumin [Mass/Vol] 4.5 g/dL Normal 3.9-4.9 [facility] Comment on above: Order Comment: Speci men Type: BLOOD SPECIMEN Ordering Facility: [facility] Address: [address] [place] [address] Performed By: #### 2 4323-8 #### [facility] CLIA [id number] [address] ALP [Catalytic activity/Vol] 63 U/L Normal 34-123 [facility] Comment on above: Order Comment: Speci men Type: BLOOD SPECIMEN Ordering Facility: [facility] Address: [address] [place] [id number] Performed By: #### 2 4323-8 #### [facility] CLIA [id number] [address] [place] ALT [Catalytic activity/Vol] 18 U/L Normal 7-38 [facility] Comment on above: Order Comment: Speci men Type: BLOOD SPECIMEN Ordering Facility: [facility] Address: [address] [place] [address] Performed By: #### 2 4323-8 #### [facility] CLIA [id number] [address] [place] [address] [place] Anion gap [Moles/Vol] 12 mmol/L Normal 8-15 [facility] Comment on above: Order Comment: Speci men Type: BLOOD SPECIMEN Ordering Facility: [facility] Address: [address] [place] [address] Performed By: #### 2 4323-8 #### [facility] CLIA [id number] [address] [place] AST [Catalytic activity/Vol] 23 U/L Normal 13-35 [facility] Comment on above: Order Comment: Speci men Type: BLOOD SPECIMEN Ordering Facility: [facility] Address: [address] [place] [address] Performed By: #### 2 4323-8 #### [facility] CLIA [id number] [address] [place] Bilirubin [Mass/Vol] 0.8 mg/dL Normal 0.2-1.3 [facility] Comment on above: Order Comment: Speci men Type: BLOOD SPECIMEN Ordering Facility: [facility] Address: [address] [place] [address] Performed By: #### 2 4323-8 #### [facility] CLIA [id number] [address] OF [facility] Calcium [Mass/Vol] 9.6 mg/dL Normal 8.5-10.2 [facility] Comment on above: Order Comment: Speci men Type: BLOOD SPECIMEN Ordering Facility: [facility] Address: [address] [place] [address] Performed By: #### 2 4323-8 #### [facility] CLIA [id number] [address] [place] [facility] Chloride [Moles/Vol] 95 mmol/L Low 98-107 [facility] Comment on above: Order Comment: Speci men Type: BLOOD SPECIMEN Ordering Facility: [facility] Address: [address] [place] [address] Performed By: #### 2 4323-8 #### [facility] CLIA [id number] [address] OF [facility] CO2 [Moles/Vol] 27 mmol/L Normal 22-30 [facility] Comment on above: Order Comment: Dianai men Type: BLOOD SPECIMEN Ordering Facility: [facility] Address: [address] [place] [address] Performed By: #### 2 4323-8 #### [facility] CLIA [id number] [address] Creatinine [Mass/Vol] 0.70 mg/dL Normal 0.58-0.96 [facility] Comment on above: Order Comment: Speci men Type: BLOOD SPECIMEN Ordering Facility: [facility] Address: [address] [place] [address] Performed By: #### 2 4323-8 #### [facility] CLIA [id number] [address] Creatinine and Glomerular filtration rate.predicted panel (S/P/Bld) 100 mL/min/1.73m??? Normal >=60 [facility] Comment on above: Order Comment: Dianai men Type: BLOOD SPECIMEN Ordering Facility: [facility] Address: [address] [place] [address] Result Comment: Gordo mated Glomerular Filtration Rate (eGFR) is calculated using the 2020 CKD-EPI creatinine equation. This equation utilizes serum creatinine, sex, and age as parameters. The creatinine assay has traceable calibration to isotope dilution-mass spectrometry. Refer to KDIGO guidelines for clinical interpretation. In patients with unstable renal function, e.g. those with acute kidney injury, the eGFR may not accurately reflect actual GFR. Performed By: #### 2 4323-8 #### [facility] CLIA [id number] [address] [place] [address] [place] Glucose [Mass/Vol] 122 mg/dL High 74-99 [facility] Comment on above: Order Comment: Jayson norwood Type: BLOOD SPECIMEN Ordering Facility: [facility] Address: [address] [place] [address] Result Comment: The [place] Diabetes [employer] (ADA) provides guidance for cutoff values for fasting glucose and random glucose. The ADA defines fasting as no caloric intake for at least 8 hours. Fasting plasma glucose results between 100 to 125 mg/dL indicate increased risk for diabetes (prediabetes). Fasting plasma glucose results greater than or equal to 126 mg/dL meet the criteria for diagnosis of diabetes. In the absence of unequivocal hyperglycemia, results should be confirmed by repeat testing. In a patient with classic symptoms of hyperglycemia or hyperglycemic crisis, random plasma glucose results greater than or equal to 200 mg/dL meet the criteria for diagnosis of diabetes. Reference: Standards of Medical Care in Diabetes 2016, [place] [employer]. Diabetes Care. 2016.39(Suppl 1). Performed By: #### 2 4323-8 #### [facility] CLIA [id number] [address] [place] [address] [place] Potassium [Moles/Vol] 2.8 mmol/L Low 3.7-5.1 [facility] Comment on above: Order Comment: Jayson norwood Type: BLOOD SPECIMEN Ordering Facility: [facility] Address: [address] [place] [address] Performed By: #### 2 4323-8 #### [facility] CLIA [id number] [address] [place] [address] [place] Protein [Mass/Vol] 7.6 g/dL Normal 6.3-8.0 [facility] Comment on above: Order Comment: Jayson norwood Type: BLOOD SPECIMEN Ordering Facility: [facility] Address: [address] [place] [address] Performed By: #### 2 4323-8 #### [facility] CLIA [id number] [address] [place] [address] [place] Sodium [Moles/Vol] 134 mmol/L Low 136-144 [facility] Comment on above: Order Comment: Jayson norwood Type: BLOOD SPECIMEN Ordering Facility: [facility] Address: [address] [place] [address] Performed By: #### 2 4323-8 #### [facility] CLIA [id number] [address] [place] [id number] [facility] Urea nitrogen [Mass/Vol] 8 mg/dL Normal 7- [facility] Comment on above: Order Comment: Jayson cuco Type: BLOOD SPECIMEN Ordering Facility: [facility] Address: [address] [place] [address] Performed By: #### 2 4323-8 #### [facility] CLIA [id number] [address] ECG COMPLETEon 03-15-2024 ECG COMPLETE Ventricular Rate : 9 5 BPM Atrial Rate : 95 BPM P-R Interval : 144 ms QRS Duration : 84 ms Q-T Interval : 348 ms QTC Calculation(Bazett) : 437 ms Calculated P Dickens : 16 degrees Calculated R Dickens : -11 degrees Calculated T Dickens : -36 degrees NORMAL SINUS RHYTHM MINIMAL VOLTAGE CRITERIA FOR LVH, MAY BE NORMAL VARIANT ( R in aVL ) NONSPECIFIC ST AND T WAVE ABNORMALITY ABNORMAL ECG Confirmed by AMRITA SYED MD ([id number]) on 03/15/2024 2:06:39 PM NAME : SHARIFA KYLE PID : [id number] : 1965 Gender : Female Race : ORD : [id number] Procedure Date : Mar 15 2024 14:03:02 Edit Date : Mar 15 2024 14:06:40 Diagnosis: NORMAL SINUS RHYTHM MINIMAL VOLTAGE CRITERIA FOR LVH, MAY BE NORMAL VARIANT ( R in aVL ) NONSPECIFIC ST AND T WAVE ABNORMALITY ABNORMAL ECG Confirmed by AMRITA SYED MD ([id number]) on 03/15/2024 2:06:39 PM Test Reason : Chest Pain Location : 1 : ER ED Overread By : AMRITA SYED MD Edited By : AMRITA SYED MD Referred By : , Acquired by : [facility] ED NOTEon 03-15-2024 ED NOTE HNO ID: [id number] Author: MARIA ESTHER CARRANZA, RN Service: Nursing Author Type: Registered Nurse Type: ED Notes Filed: 03/15/2024 16:24 Note Text: Dr. Syed rounded on patient at this time. Patient results of testing, imaging, and discharge plan of care was discussed by provider at this time. Patient is agreeable to discharge plan of care at this time. This RN provided prescription education, discharge instructions, and follow up care instructions to patient at discharge. Patient verbalized understanding of all discharge teaching. VS are stable. Patient IV removed. Patient was discharged in stable condition with ride home from spouse. [facility] ED PROV NOTEon 03-15-2024 ED PROV NOTE HNO ID: [id number] Author: AMRITA SYED MD Service: ? Author Type: Physician Type: ED Provider Notes Filed: 03/15/2024 13:57 Note Text: ED Provider Note Patient Name: Sharifa Kyle : 1965 SERVICE DATE: 03/15/24 History Patient presents with: Flu Like Symptoms: Chest congestion, fever, cough x 24 hours. 58-year-old female with history of hypertension and thyroid disorder who presents here with 24 hours of cough, sore throat, malaise, myalgias, and high fever. She reports having a sore throat yesterday. Last evening she began having a fever of greater than 105 that continued this morning. She reports sharp pleuritic pain in her central chest and back. She took Tylenol approximately 2 hours ago. Patient called her primary who advised her to come to the emergency department to rule out pneumonia. PAST MEDICAL HISTORY Diagnosis Date Hypertension Thyroid disease PAST SURGICAL HISTORY Procedure Laterality Date HAND SURGERY HX FAMILY HISTORY Problem Relation Age of Onset Emphysema Father Heart Sister Social History Tobacco Use Smoking status: Never Smokeless tobacco: Never Vaping Use Vaping status: Never Used Substance and Sexual Activity Alcohol use: Yes Comment: seldom Drug use: No Sexual activity: Yes Partners: Male control/protection: Vasectomy ALLERGIES Allergen Reactions Amoxicillin Rash Codeine Rash Venom-Honey Bee Swelling Review of Systems Constitutional: Positive for chills and fever. HENT: Positive for congestion and sore throat. Respiratory: Positive for cough. Negative for shortness of breath. Cardiovascular: Positive for chest pain. Negative for leg swelling. Skin: Negative for color change and pallor. Neurological: Negative for weakness. Psychiatric/Behavioral : Negative for agitation and behavioral problems. Physical Exam Vitals [03/15/24 1221] BP Pulse Temp Temp src Resp SpO2 Weight Height 134/84 (!) 104 37.1 ?C (98.7 ?F) Oral 20 96 % 81.6 kg (180 lb) -- Physical Exam Vitals and nursing note reviewed. Constitutional: General: She is not in acute distress. Appearance: Normal appearance. She is well-developed. HENT: Head: Normocephalic and atraumatic. Right Ear: External ear normal. Left Ear: External ear normal. Nose: Nose normal. Mouth/Throat: Mouth: Mucous membranes are moist. Pharynx: Oropharynx is clear. Eyes: Conjunctiva/sclera: Conjunctivae normal. Pupils: Pupils are equal, round, and reactive to light. Cardiovascular: Rate and Rhythm: Normal rate and regular rhythm. Heart sounds: Normal heart sounds. No murmur heard. Pulmonary: Effort: Pulmonary effort is normal. No respiratory distress. Breath sounds: Normal breath sounds. No stridor. No wheezing or rales. Chest: Chest wall: No tenderness. Abdominal: General: Bowel sounds are normal. There is no distension. Palpations: Abdomen is soft. Tenderness: There is no abdominal tenderness. There is no rebound. Musculoskeletal: General: No tenderness. Normal range of motion. Cervical back: Normal range of motion and neck supple. Lymphadenopathy: Cervical: No cervical adenopathy. Skin: General: Skin is warm and dry. Capillary Refill: Capillary refill takes less than 2 seconds. Findings: No erythema or rash. Neurological: General: No focal deficit present. Mental Status: She is alert and oriented to person, place, and time. Psychiatric: Mood and Affect: Mood normal. Behavior: Behavior normal. Thought Content: Thought content normal. Judgment: Judgment normal. Diagnostic Testing ED Labs Ordered and Reviewed - No data to display Procedures ED Course / Clinical Impression Clinical Impressions as of 03/15/24 1354 Influenza Cough, unspecified type Fever, unspecified fever cause Hypokalemia MDM / Disposition / Plan 58-year-old female who presents with URI symptoms and fever. It is associated with pleuritic pain. Workup in ED reveals CMP normal except for potassium of 2.8. CBC normal. Acute viral panel positive for flu A. Chest x-ray normal. While in ED, she was given potassium replacement IV. Ibuprofen given for malaise. Flu given for flu A. She will be discharged home with oral supplemental potassium and Tamiflu. History and Record Review Clinical information obtained from an independent historian. History obtained from or confirmed by: spouse. Differential Diagnoses - Acute viral illness rule out - Pneumonia rule out - PE rule out is less likely for the following reason(s): HANDP not suggestive Management I performed an independent interpretation of the following:imaging Imaging: My interpretation is Chest x-ray no acute disease. Radiology Reports XR CHEST 2V FRONTAL/LAT Final Result IMPRESSION: No acute radiographic abnormality. Field Observer: MALIA Transcribe Date/Time: Mar 15 2024 12:57P Dictated by : SHAWN BURNS MD This examination was interpr (more content not included)... Normal [facility] XR CHEST 2V FRONTAL/LATon XR CHEST 2V FRONTAL/LAT * * *Final Report* * * DATE OF EXAM: Mar 15 2024 12:55PM MDX 5291 - XR CHEST 2V FRONTAL/LAT / PROCEDURE REASON: Cough * * * * Physician Interpretation * * * * EXAMINATION: CHEST RADIOGRAPH (2 VIEW FRONTAL and LATERAL) CLINICAL HISTORY: Cough MQ: [id number] EXAM DATE/TIME: 03/15/2024 12:55 PM COMPARISON: 07/06/2018 RESULT: Lines, tubes, and devices: None. Lungs and pleura: Low lung volumes with crowding of the vessels in the lung bases. No consolidation. No lung mass. No pleural effusion. No pneumothorax. Cardiomediastinal silhouette: Normal cardiomediastinal silhouette. Bones and soft tissues: Unremarkable. IMPRESSION: No acute radiographic abnormality. Field Observer: MALIA Transcribe Date/Time: Mar 15 2024 12:57P Dictated by : SHAWN BURNS MD This examination was interpreted and the report reviewed and electronically signed by: SHAWN BURNS MD on Mar 15 2024 12:57PM EST [id number] Normal [facility] Absolute lymphocyte countOrd ered By: Melvin Nathanson on 12-20-2022 Lymphocytes Auto (Unsp spec) [#/Vol] 3.93 10*3/uL 0.83-4.51 [facility] Basophil percentageOrdered B y: Melvin Garcia on 12-20-2022 Basophils/100 WBC (Bld) 0.7 % 0-1 [facility] Bilirubin [Mass/Vol] 0.70 mg/dL 0.20-1.00 [facility] Comment on above: For patients on eltr ombopag therapy, use of Dimension [place] TBIL is not recommended. Chloride [Moles/Vol] 103 mmol/L 98-107 [facility] Cholesterol [Mass/Vol] 208 mg/dL <200 [facility] Comment on above: <200 mg/dL Desirable 200-240 mg/dL Borderline >240 mg/dL High Risk Eosinophils/100 WBC (Bld) 1.8 % 0-5 [facility] Glucose [Mass/Vol] 101 mg/dL 74-106 [facility] Comment on above: Fasting Glucose resu lt from 100 to 125 mg/dL suggests IMPAIRED HOMEOSTASIS per A.D.A. criteria. Neutrophils (Bld) [#/Vol] 5.0 10*3/uL 2.0-7.7 [facility] Neutrophils/100 WBC (Bld) 49.5 % 47-70 [facility] Potassium [Moles/Vol] 2.9 mmol/L 3.5-5.1 [facility] Protein [Mass/Vol] 7.6 g/dL 6.4-8.2 [facility] Sodium [Moles/Vol] 139 mmol/L 136-145 [facility] Triglyceride [Mass/Vol] 151 mg/dL <199 [facility] Comment on above: The drugs N-Acetylcy steine and Metamizole may falsely depress this assay.Serum Triglycerides Reference Interval Normal <150 mg/dL Borderline high 150 - 199 mg/dL High 200 - 499 mg/dL Very High > or = 500 mg/dL WBC (Bld) [#/Vol] 10.1 10*3/uL 4.4-11.0 [facility] Blood erythrocytes count (nu mber/volume)Ordered By: Melvin Garcia on 12-20-2022 RBC (Bld) [#/Vol] 4.17 10*6/uL 4.2-5.4 [facility] Blood hemoglobin measurement (mass/volume)Ordered By: Melvin Garcia on 12-20-2022 Hemoglobin (Bld) [Mass/Vol] 12.9 g/dL 12.0-15.0 [facility] Blood lymphocytes/100 leukoc ytesOrdered By: Melvin Garcia on 12-20-2022 Lymphocytes/100 WBC (Bld) 38.8 % 19-41 [facility] Blood monocytes/100 leukocyt esOrdered By: Melvin Garcia on 12-20-2022 Monocytes/100 WBC (Bld) 8.9 % 0-10 [facility] Blood platelet mean volumeOr dered By: Melvin Garcia on 12-20-2022 Platelet mean volume (Bld) [Entitic vol] 10.8 fL 6.2-12.0 [facility] Determination of erythrocyte mean corpuscular volume (MCV)Ordered By: Melvin Garcia on 12-20-2022 MCV (RBC) [Entitic vol] 91.8 fL 81-99 [facility] Hematocrit Auto (Bld) [Volum e fraction]Ordered By: Melvin Garcia on 12-20-2022 Hematocrit (Bld) [Volume fraction] 38.3 % 37-47 [facility] Laboratory - Chemistry and C hemistry - challengeOrdered By: Melvin Garcia on 12-20-2022 ALP [Catalytic activity/Vol] 60 U/L 45-117 [facility] ALT [Catalytic activity/Vol] 27 U/L 13-56 [facility] CO2 [Moles/Vol] 29.0 mmol/L 21.0-32.0 [facility] Globulin (S) [Mass/Vol] 3.6 g/dL 2.2-4.2 [facility] Urea nitrogen/Creatinine [Mass ratio] 10.7 mg/mg 10-20 [facility] - Hematology and Cell countsOrdered By: Melvin Garcia on 12-20-2022 Erythrocyte distribution width (RBC) [Entitic vol] 44.4 fL 35.1-43.9 [facility] Erythrocyte distribution width (RBC) [Ratio] 13.2 % 11.6-14.6 [facility] Immature granulocytes/100 WBC (Bld) 0.300 % 0.0-0.9 [facility] Comment on above: IG% - Immature Granu locytes (promyelocytes, myelocytes and metamyelocytes) > 1% indicates that a LEFT SHIFT is Present. MCH (RBC) [Entitic mass] 30.9 pg 27.0-32.0 [facility] Nucleated RBC/100 WBC (Bld) [Ratio] 0 % 0-[facility] [Mass/Vol]Or dered By: Melvin Garcia on 12-20-2022 MCHC (RBC) [Mass/Vol] 33.7 g/dL 32-36 [facility] No Panel InformationOrdered By: Melvin Garcia on 12-20-2022 Estimated GFR (MDRD) Amer 103 mL/min >60 [facility] Comment on above: GFR Calc Estimated GFR (MDRD) Non-Af Amer 85 mL/min >60 [facility] Comment on above: Non- GFR Calc Thyroid Stimulating Hormone (TSH) 3.99 uIU/mL 0.358-3.74 [facility] Platelets bldOrdered By: Danny Garcia on 12-20-2022 Platelets (Bld) [#/Vol] 338 10*3/uL 150-450 [facility] Serum or plasma albumin andrew urement (mass/volume)Ordered By: Melvin Garcia on 12-20-2022 Albumin [Mass/Vol] 4.0 g/dL 3.2-5.0 [facility] Serum or plasma albumin/glob ulin mass ratioOrdered By: Melvin Garcia on 12-20-2022 Albumin/Globulin [Mass ratio] 1.1 {ratio} 0.9-2.4 [facility] Serum or plasma calcium andrew urement (mass/volume)Ordered By: Melvin Garcia on 12-20-2022 Calcium [Mass/Vol] 9.2 mg/dL 8.5-10.1 [facility] Serum or plasma cholesterol in HDL measurement (mass/volume)Ordered By: Melvin Garcia on 12-20-2022 Cholesterol in HDL [Mass/Vol] 53 mg/dL >40 [facility] Comment on above: The drugs N-Acetylcy steine and Metamizole may falsely depress this assay. Reference Range HDL <40 mg/dL Low HDL Cholesterol HDL >or= 60 mg/dL High HDL Cholesterol Serum or plasma cholesterol in VLDL measurement (mass/volume)Ordered By: Melvin Garcia on 12-20-2022 Cholesterol in VLDL [Mass/Vol] 30 mg/dL 5-40 [facility] Serum or plasma creatinine m easurement (mass/volume)Ordered By: Melvin Garcia on 12-20-2022 Creatinine [Mass/Vol] 0.75 mg/dL 0.55-1.02 [facility] Comment on above: The validity of the calculated GFR & GFRAA in patients over 70 years has not been determined. Clinical correlation is essential. Serum or plasma low density lipoprotein (LDL) cholesterol measurement (mass/volume)Ordered By: Melvin Garcia on 12-20-2022 Cholesterol in LDL [Mass/Vol] 125 mg/dL 0-130 [facility] Serum or plasma urea nitroge n measurement (mass/volume)Ordered By: Melvin Garcia on 12-20-2022 Urea nitrogen [Mass/Vol] 8 mg/dL 7-18 [facility] Thin prep Papanicolaou smear with manual screeningOrdered By: Melvin Garcia on 12-20-2022 Thin prep Papanicolaou smear with manual screening 15 U/L 15-37 [facility] Thin prep Papanicolaou smear with manual screening 7 5-15 [facility] CNOVon 01-07-2022 CNOV Office Visit (ORMDNA ) SHARIFA KYLE ([id number]) 1965 F Date Time Provider Department 01/07/22 3:30 PM BETHANY YAP During your visit today, we recorded the following information about you: Weight Height 79.8 kg 1.6 m Bethany Yap PA-C 01/07/2022 4:19 PM Signed SERVICE DATE: January 07, 2022 PCP: Tejal Ridley MD, MD Patient was self-referred. Subjective Patient ID: Sharifa is a 56 year old female. Chief Complaint: Patient presents with: Right Knee - New, Knee Pain PAIN EVALUATION 01/07/2022 1533 Pain Level: 2 Pain at night Pain Location: Knee-Right Description: Aching Duration Amount of Time: 5 Duration Units: Months Frequency: Intermittent Intervention/Comfort measure: Reposition;Relaxation; Positioning;Cold;Medic ation tylenol Nanette comes today to have her right knee checked out. She states it rod snot hurt. She was told by former PCP she may have a tumor in the knee which is her main reason for today's appointment. 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 She reports no pain in the knee unless she overdoes things. TREATMENTS PRIOR TO INITIAL CONSULT: Oral NSAIDS [...] C) 500 mg tablet Take by mouth. Lacto.acidophilus-Bif. animalis 32 billion cell cap Take by mouth. [...] consistent with an enchondroma. Assessment/Plan ASSESSMENT Diagnosis (D16.) Enchondroma of femur, right (primary encounter diagnosis) No orders found for this visit on 01/07/22. PLAN No new treatment needed at this time if osteoarthritis becomes more symptomatic we can consider intra-articular injection in the future FOLLOW-UP: No follow-ups on file. PRN SIGNATURE: Bethany aYp PA-C PATIENT NAME: Sharifa Kyle DATE: January 07, 2022 TIME: 4:11 PM Referring Provider: SELF [200] Allergies As of Date: 01/07/2022 Noted Allergy Reaction AMOXICILLIN 06/03/2017 2 - Rash CODEINE 06/03/2017 2 - Rash VENOM-HONEY BEE 12/15/2020 7 - Swelling Date Reviewed: 01/07/2022 Reviewed by: Bethany Yap PA-C - Fully Assessed Reason for Visit: New [337192] Knee Pain [132] Primary Visit Diagnosis:Enchondroma of femur, right [D16.21] Other Visit Diagnosis:Primary osteoarthritis of right knee [M17.11] Prescriptions as of 01/07/2022 - cholecalciferol, vitamin D3, (VITAMIN D3 ORAL) Take by mouth. - Lactobacillus acidophilus (PROBIOTIC ORAL) Take by mouth. - amLODIPine (NORVASC) 10 mg tablet - ascorbic acid, vitamin C, (VITAMIN C) 500 mg tablet Take by mouth. - Lacto.acidophilus-Bif. animalis 32 billion cell cap Take by mouth. - flaxseed oil (OMEGA 3 ORAL) Take by mouth. - ZINC ORAL Take by mouth. - MAGNESIUM ORAL Take by mouth. - MELATONIN ORAL Take by mouth. - levothyroxine (SYNTHROID) 100 mcg tablet - losartan (COZAAR) 100 mg tablet - potassium chloride SR (MICRO-K) 10 mEq CR capsule - hydroCHLOROthiazide (HYDRODIURIL, ESIDRIX) 25 mg tablet Problem List As Of Date: 01/07/2022 (None) Encounter Status:Closed by VERONICA, (more content not included)... Normal [facility] XR Knee - right 4 Viewson IMPRESSION: Osteoarthrosis Field Observer: MALIA Transcribe Date/Time: Jan 07 2022 3:35P Dictated by : SHAWN BURNS MD This examination was interpreted and the report reviewed and electronically signed by: SHAWN BURNS MD on Jan 07 2022 3:36PM EST [facility] * * *Final Report* * * DATE OF EXAM: Jan 07 2022 3:19PM KATI 5203 - XR KNEE 4V AP/PA BOTH+LAT/LATOSHA RT / PROCEDURE REASON: M25.561-Right knee pain, unspecified chronicity * * * * Physician Interpretation * * * * PROCEDURE: Right knee INDICATION: Right knee pain, unspecified chronicity .RIGHT KNEE PAIN TECHNIQUE: XR KNEE 4V AP/PA BOTH+LAT/LATOSHA RT COMPARISON: None FINDINGS: Moderate medial joint compartment narrowing with minimal medial and patellofemoral joint marginal spur formation. No fracture or significant joint effusion. Approximate 3 cm area of chondroid matrix in the distal femur most consistent with an enchondroma. [facility] Provider, Vicky Ulloa [facility] - 01/07/2022 * * *Final Report* * * DATE OF EXAM: Jan 07 2022 3:19PM KATI 5203 - XR KNEE 4V AP/PA BOTH+LAT/LATOSHA RT / PROCEDURE REASON: M25.561-Right knee pain, unspecified chronicity * * * * Physician Interpretation * * * * PROCEDURE: Right knee INDICATION: Right knee pain, unspecified chronicity .RIGHT KNEE PAIN TECHNIQUE: XR KNEE 4V AP/PA BOTH+LAT/LATOSHA RT COMPARISON: None FINDINGS: Moderate medial joint compartment narrowing with minimal medial and patellofemoral joint marginal spur formation. No fracture or significant joint effusion. Approximate 3 cm area of chondroid matrix in the distal femur most consistent with an enchondroma. IMPRESSION IMPRESSION: Osteoarthrosis Field Observer: PSCB Transcribe Date/Time: Jan 07 2022 3:35P Dictated by : SHAWN BURNS MD This examination was interpreted and the report reviewed and electronically signed by: SHAWN BURNS MD on Jan 07 2022 3:36PM EST [facility] Radiology Study observation (narrative) [facility] XR Knee - right 4 ViewsOrder ed By: [facility] Provider on 01-07-2022 [facility] Vitamin D 1,25-Dihydroxyon 1 02-24-2021 VIT D 1,25 DIHY 22.4 pg/mL Abnormal 24.8-81.5 [facility] Comment on above: Result Comment: Perf ormed at: [facility] - [facility] [address] [id number] Geometrician: Murali Schumacher MD, Phone: [phone] Performed By: #### L 501.9520, L100.0100, L3300.0960, L500.4050, L500.4100 #### [facility] [address] [place], [address] CBC W/Diff, Automatedon 10-3 -2021 Absolute Lymph 4.52 X10 3/uL High 0.83-4.51 [facility] Comment on above: Performed By: #### L 501.9520, L100.0100, L3300.0960, L500.4050, L500.4100 #### [facility] [address] [place], [address] Absolute Neut 5.8 X10 3/uL Normal 2.0-7.7 [facility] Comment on above: Performed By: #### L 501.9520, L100.0100, L3300.0960, L500.4050, L500.4100 #### [facility] [address] [place], [address] Basophils/100 WBC (Bld) 0.6 % Normal 0-1 [facility] Comment on above: Performed By: #### L 501.9520, L100.0100, L3300.0960, L500.4050, L500.4100 #### [facility] [address] [place], [address] Eosinophils/100 WBC (Bld) 1.0 % Normal 0-5 [facility] Comment on above: Performed By: #### L 501.9520, L100.0100, L3300.0960, L500.4050, L500.4100 #### [facility] [address] [place], [address] Erythrocyte distribution width (RBC) [Ratio] 13.1 % Normal 11.6-14.6 [facility] Comment on above: Performed By: #### L 501.9520, L100.0100, L3300.0960, L500.4050, L500.4100 #### [facility] [address] [place], [address] Hematocrit (Bld) [Volume fraction] 37.1 % Normal 37-47 [facility] Comment on above: Performed By: #### L 501.9520, L100.0100, L3300.0960, L500.4050, L500.4100 #### [facility] [address] [place], [address] Hemoglobin (Bld) [Mass/Vol] 13.2 g/dL Normal 12.0-15.0 [facility] Comment on above: Performed By: #### L 501.9520, L100.0100, L3300.0960, L500.4050, L500.4100 #### [facility] [address] [place], [address] IG% 0.300 Normal 0.0-0.9 [facility] Comment on above: Result Comment: IG% - Immature Granulocytes (promyelocytes, myelocytes and metamyelocytes) > 1% indicates that a LEFT SHIFT is Present. Performed By: #### L 501.9520, L100.0100, L3300.0960, L500.4050, L500.4100 #### [facility] [address] [place], [address] Lymphocytes/100 WBC (Bld) 38.8 % Normal 19-41 [facility] Comment on above: Performed By: #### L 501.9520, L100.0100, L3300.0960, L500.4050, L500.4100 #### [facility] [address] [place], [address] MCH (RBC) [Entitic mass] 32.0 pg Normal 27.0-32.0 [facility] Comment on above: Performed By: #### L 501.9520, L100.0100, L3300.0960, L500.4050, L500.4100 #### [facility] [address] [place], [address] MCHC (RBC) [Mass/Vol] 35.6 g/dL Normal 32-36 [facility] Comment on above: Performed By: #### L 501.9520, L100.0100, L3300.0960, L500.4050, L500.4100 #### [facility] [address] [place], [address] MCV (RBC) [Entitic vol] 89.8 fL Normal 81-99 [facility] Comment on above: Performed By: #### L 501.9520, L100.0100, L3300.0960, L500.4050, L500.4100 #### [facility] [address] [place], [address] Monocytes/100 WBC (Bld) 9.7 % Normal 0-10 [facility] Comment on above: Performed By: #### L 501.9520, L100.0100, L3300.0960, L500.4050, L500.4100 #### [facility] [address] [place], [address] Neutrophils/100 WBC (Bld) 49.6 % Normal 47-70 [facility] Comment on above: Performed By: #### L 501.9520, L100.0100, L3300.0960, L500.4050, L500.4100 #### [facility] [address] [place], [address] Nucleated RBC (Bld) [#/Vol] 0 10*3/uL Normal 0-5 [facility] Comment on above: Performed By: #### L 501.9520, L100.0100, L3300.0960, L500.4050, L500.4100 #### [facility] [address] [place], [address] Platelet mean volume (Bld) [Entitic vol] 10.7 fL Normal 6.2-12.0 [facility] Comment on above: Performed By: #### L 501.9520, L100.0100, L3300.0960, L500.4050, L500.4100 #### [facility] [address] [place], [address] Platelets (Bld) [#/Vol] 375 10*3/uL Normal 150-450 [facility] Comment on above: Performed By: #### L 501.9520, L100.0100, L3300.0960, L500.4050, L500.4100 #### [facility] [address] [place], [address] RBC (Bld) [#/Vol] 4.13 10*6/uL Low 4.2-5.4 [facility] Comment on above: Performed By: #### L 501.9520, L100.0100, L3300.0960, L500.4050, L500.4100 #### [facility] [address] [place], [address] RDW SD 43.0 fl Normal 35.1-43.9 [facility] Comment on above: Performed By: #### L 501.9520, L100.0100, L3300.0960, L500.4050, L500.4100 #### [facility] [address] [place], [address] WBC (Bld) [#/Vol] 11.6 10*3/uL High 4.4-11.0 [facility] Comment on above: Performed By: #### L 501.9520, L100.0100, L3300.0960, L500.4050, L500.4100 #### [facility] [address] [place], [address] Comprehensive Metabolic Prof njon 12-20-2021 Albumin [Mass/Vol] 4.3 g/dL Normal 3.2-5.0 [facility] Comment on above: Performed By: #### L 501.9520, L100.0100, L3300.0960, L500.4050, L500.4100 #### [facility] [address] [place], [address] Albumin/Globulin [Mass ratio] 1.2 {ratio} Normal 0.9-2.4 [facility] Comment on above: Performed By: #### L 501.9520, L100.0100, L3300.0960, L500.4050, L500.4100 #### [facility] [address] [place], [address] ALK P 58 U/L Normal 45-117 [facility] Comment on above: Performed By: #### L 501.9520, L100.0100, L3300.0960, L500.4050, L500.4100 #### [facility] [address] [place], [address] ALT [Catalytic activity/Vol] 28 U/L Normal 13-56 [facility] Comment on above: Performed By: #### L 501.9520, L100.0100, L3300.0960, L500.4050, L500.4100 #### [facility] [address] [place], [address] AST [Catalytic activity/Vol] 16 U/L Normal 15-37 [facility] Comment on above: Performed By: #### L 501.9520, L100.0100, L3300.0960, L500.4050, L500.4100 #### [facility] [address] [place], [address] Bilirubin [Mass/Vol] 0.50 mg/dL Normal 0.20-1.00 [facility] Comment on above: Result Comment: For patients on eltrombopag therapy, use of Dimension [place] TBIL is not recommended. Performed By: #### L 501.9520, L100.0100, L3300.0960, L500.4050, L500.4100 #### [facility] [address] [place], [address] BUN/CRE 14.8 RATIO Normal 10-20 [facility] Comment on above: Performed By: #### L 501.9520, L100.0100, L3300.0960, L500.4050, L500.4100 #### [facility] [address] [place], [address] CA,Total 9.7 mg/dL Normal 8.5-10.1 [facility] Comment on above: Performed By: #### L 501.9520, L100.0100, L3300.0960, L500.4050, L500.4100 #### [facility] [address] [place], [address] Chloride [Moles/Vol] 98 mmol/L Normal 98-107 [facility] Comment on above: Performed By: #### L 501.9520, L100.0100, L3300.0960, L500.4050, L500.4100 #### [facility] [address] [place], [address] CO2 [Moles/Vol] 28.0 mmol/L Normal 21.0-32.0 [facility] Comment on above: Performed By: #### L 501.9520, L100.0100, L3300.0960, L500.4050, L500.4100 #### [facility] [address] [place], [address] Creatinine [Mass/Vol] 0.81 mg/dL Normal 0.55-1.02 [facility] Comment on above: Result Comment: The validity of the calculated GFR GFRAA in patients over 70 years has not been determined. Clinical correlation is essential. Performed By: #### L 501.9520, L100.0100, L3300.0960, L500.4050, L500.4100 #### [facility] [address] [place], [address] EST GFR - AA 93 mL/min Normal >60 [facility] Comment on above: Result Comment: Afri can [place] GFR Calc Performed By: #### L 501.9520, L100.0100, L3300.0960, L500.4050, L500.4100 #### [facility] [address] [place], [address] GAP 8 Normal 5-15 [facility] Comment on above: Performed By: #### L 501.9520, L100.0100, L3300.0960, L500.4050, L500.4100 #### [facility] [address] [place], [place], [id number] (226) GFR/1.73 sq M.predicted among non-blacks MDRD (S/P/Bld) [Vol rate/Area] 77 mL/min/{1.73_m2} Normal >60 [facility] Comment on above: Result Comment: Non- GFR Calc Performed By: #### L 501.9520, L100.0100, L3300.0960, L500.4050, L500.4100 #### [facility] [address] [place], [address] Globulin (S) [Mass/Vol] 3.6 g/dL Normal 2.2-4.2 [facility] Comment on above: Performed By: #### L 501.9520, L100.0100, L3300.0960, L500.4050, L500.4100 #### [facility] [address] [place], [address] Glucose [Mass/Vol] 98 mg/dL Normal 74-106 [facility] Comment on above: Performed By: #### L 501.9520, L100.0100, L3300.0960, L500.4050, L500.4100 #### [facility] [address] [place], [address] Potassium [Moles/Vol] 3.0 mmol/L Low 3.5-5.1 [facility] Comment on above: Performed By: #### L 501.9520, L100.0100, L3300.0960, L500.4050, L500.4100 #### [facility] [address] [place], [address] Sodium [Moles/Vol] 134 mmol/L Low 136-145 [facility] Comment on above: Performed By: #### L 501.9520, L100.0100, L3300.0960, L500.4050, L500.4100 #### [facility] [address] [place], [address] T PROT 7.9 g/dL Normal 6.4-8.2 [facility] Comment on above: Performed By: #### L 501.9520, L100.0100, L3300.0960, L500.4050, L500.4100 #### [facility] [address] [place], [address] Urea nitrogen [Mass/Vol] 12 mg/dL Normal 7-18 [facility] Comment on above: Performed By: #### L 501.9520, L100.0100, L3300.0960, L500.4050, L500.4100 #### [facility] [address] [place], [address] Lipid Profileon 12-20-2021 Cholesterol [Mass/Vol] 206 mg/dL High 200 [facility] Comment on above: Result Comment: <200 mg/dL Desirable 200-240 mg/dL Borderline >240 mg/dL High Risk Performed By: #### L 501.9520, L100.0100, L3300.0960, L500.4050, L500.4100 #### [facility] [address] [place], [address] Cholesterol in HDL [Mass/Vol] 60 mg/dL Normal [facility] Comment on above: Result Comment: The drugs N-Acetylcysteine and Metamizole may falsely depress this assay. Reference Range HDL <40 mg/dL Low HDL Cholesterol HDL >or= 60 mg/dL High HDL Cholesterol Performed By: #### L 501.9520, L100.0100, L3300.0960, L500.4050, L500.4100 #### [facility] [address] [place], [address] Cholesterol in LDL [Mass/Vol] 115 mg/dL Normal 0-130 [facility] Comment on above: Performed By: #### L 501.9520, L100.0100, L3300.0960, L500.4050, L500.4100 #### [facility] [address] [place], [address] Cholesterol in VLDL [Mass/Vol] 31 mg/dL Normal 5-40 [facility] Comment on above: Performed By: #### L 501.9520, L100.0100, L3300.0960, L500.4050, L500.4100 #### [facility] [address] [place], [address] Triglyceride [Mass/Vol] 156 mg/dL Normal [facility] Comment on above: Result Comment: The drugs N-Acetylcysteine and Metamizole may falsely depress this assay. Serum Triglycerides Reference Interval Normal <150 mg/dL Borderline high 150 - 199 mg/dL High 200 - 499 mg/dL Very High > or = 500 mg/dL Performed By: #### L 501.9520, L100.0100, L3300.0960, L500.4050, L500.4100 #### [facility] [address] [place], [place], [address] Thyroid Stim Hormone (TSH)on 12-20-2021 TSH 0.88 uIU/mL Normal 0.358-3.74 [facility] Comment on above: Performed By: #### L 501.9520, L100.0100, L3300.0960, L500.4050, L500.4100 #### [facility] [address] [place], [address] CNPNon 11-19-2021 CNPN Telephone (OBGYWM) SHARIFA KYLE ([id number]) 1965 F Date Time Provider Department 11/19/21 CYRUS FERNANDEZ During your visit today, we recorded the following information about you: Maren Michele RN 11/19/2021 3:14 PM Signed Patient here in office as a visitor. [...] obscure her mammogram findings. ED report in [facility]. Patient was seen in [place]. CT scan done. Maren Fernandez MD 11/19/2021 3:43 PM Signed Would strongly recommend waiting until 3 months after the accident for mammogram as agree, may be false negatives and false positives with the current tissue damage and inflammation. I wish her a speedy recovery and am sorry to hear she was in an accident. MD Lela Wilkes RN 11/19/2021 3:53 PM Signed Patient notified and voiced understanding. Patient still in office and will schedule for at least 3 months out with PSS. Lela Lopez RN Allergies As of Date: 11/19/2021 Noted Allergy Reaction AMOXICILLIN 06/03/2017 2 - Rash CODEINE 06/03/2017 2 - Rash VENOM-HONEY BEE 12/15/2020 7 - Swelling Date Reviewed: 11/01/2021 Reviewed by: Quinton Ansari RN - Fully Assessed Reason for Visit: Patient Question [3907] Prescriptions as of 11/19/2021 - cholecalciferol, vitamin D3, (VITAMIN D3 ORAL) Take by mouth. - Lactobacillus acidophilus (PROBIOTIC ORAL) Take by mouth. - amLODIPine (NORVASC) 10 mg tablet - ascorbic acid, vitamin C, (VITAMIN C) 500 mg tablet Take by mouth. - Lacto.acidophilus-Bif. animalis 32 billion cell cap Take by mouth. - flaxseed oil (OMEGA 3 ORAL) Take by mouth. - ZINC ORAL Take by mouth. - MAGNESIUM ORAL Take by mouth. - MELATONIN ORAL Take by mouth. - levothyroxine (SYNTHROID) 100 mcg tablet - losartan (COZAAR) 100 mg tablet - potassium chloride SR (MICRO-K) 10 mEq CR capsule - hydroCHLOROthiazide (HYDRODIURIL, ESIDRIX) 25 mg tablet Problem List As Of Date: 11/19/2021 (None) Encounter Status:Closed by LELA LOPEZ RN on 11/19/21 Normal [facility] BASIC METABOLIC PANELon 09- Anion gap [Moles/Vol] 16 mmol/L Normal 10 - 20 [facility] Comment on above: Performed By: #### C BC #### [facility] [address] [place] [address] Calcium [Mass/Vol] 9.9 mg/dL Normal 8.6 - 10.6 [facility] Comment on above: Performed By: #### C BC #### [facility] [address] [place] [address] Chloride [Moles/Vol] 102 mmol/L Normal 98 - 107 [facility] Comment on above: Performed By: #### C BC #### [facility] [address] [place] [address] Creatinine [Mass/Vol] 0.75 mg/dL Normal 0.50 - 1.05 [facility] Comment on above: Performed By: #### C BC #### [facility] [address] [place] [address] eGFR FEMALE >90 Normal >90 [facility] Comment on above: Result Comment: CALC ULATIONS OF ESTIMATED GFR ARE PERFORMED USING THE 2020 CKD-EPI STUDY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 no concerns today 1 due for labs pt had PE 11/2020 [facility]- orders mammmo - Dr Fernandez - in [place] 3 discussed colon cancer screening- pt has declined colonoscopy discussed cologuard - will try2 1 Amended By: Samantha Elizabeth; Jul 22 2021 10:56 AM EST 2 Amended By: Tejal Ridley; Jul 22 2021 11:04 AM EST 3 Amended By: Tejal Ridley; Jul 22 2021 11:07 AM ESTActive Problems Problems Allergic rhinitis (477.9) (J30.9) Benign essential hypertension (401.1) (I10) BMI 30.0-30.9,adult (V85.30) (Z68.30) Colonoscopy refused (V64.2) (Z53.20) Encounter for HCV screening test for high risk patient (V73.89) (Z11.59,Z91.89) Encounter for screening mammogram for malignant neoplasm of breast (V76.12) (Z12.31) Hypercholesterolemia (272.0) (E78.00) Hypothyroidism (244.9) (E03.9) Immunization due (V05.9) (Z23) Insomnia (780.52) (G47.00) Prediabetes (790.29) (R73.03) Screening for cervical cancer (V76.2) (Z12.4) Screening for colon cancer (V76.51) (Z12.11) Screening for osteoporosis (V82.81) (Z13.820) Vitamin D deficiency (268.9) (E55.9) Past Medical History Problems History of BMI 28.0-28.9,adult (V85.24) (Z68.28) History of Cough (786.2) (R05.9) History of Fall, accidental (E888.9) (W19.XXXA) History of Hip pain (719.45) (M25.559) History of herpes labialis (V12.09) (Z86.19) History of hypokalemia (V12.29) (Z86.39) History of influenza vaccination (V49.89) (Z92.29) History of obesity (V12.29) (Z86.39) History of sinusitis (V12.69) (Z87.09) History of Hospital discharge follow-up (V67.59) (Z09) History of Immunization due (V05.9) (Z23) History of Overweight (278.02) (E66.3) History of Pain of right lower extremity (729.5) (M79.604) History of Rib injury History of Rib pain on left side (786.50) (R07.81) History of Screening for cholesterol level (V77.91) (Z13.220) Surgical History Problems History of Hand Surgery Family History Mother No pertinent family history Father Family history of Family history of chronic obstructive pulmonary disease (V17.6) (Z82.5) Sister Family history of myocardial infarction (V17.3) (Z82.49) Social History Problems Consumes alcohol occasionally (V49.89) (Z78.9) Does not use illicit drugs (V49.89) (Z78.9) Does not use tobacco (V49.89) (Z78.9) Never a smoker Non-smoker (V49.89) (Z78.9) Occupation Current Meds Medication NameInstruction amLODIPine Besylate 10 MG Oral TabletTAKE ONE TABLET BY MOUTH ONCE DAILY NEEDED FOR BLOOD PRESSURE Apple Cider Vinegar 500 MG Oral Tablet Frankincense OIL hydroCHLOROthiazide 25 MG Oral TabletTAKE 1 TABLET EVERY DAY Levothyroxine Sodium 100 MCG Oral TabletTAKE ONE TABLET BY MOUTH ONCE DAILY Losartan Potassium 100 MG Oral TabletTAKE ONE TABLET BY MOUTH ONCE DAILY Magnesium CAPS Melatonin CAPS [place]-3 Fish Oil 1000 MG Oral Capsule Potassium Chloride ER 10 MEQ Oral Capsule Extended ReleaseTAKE ONE CAPS (more content not included)... Normal Touchrust TSHon 07-22-2021 TSH Qn 7.49 m[IU]/L High 0.44 - 3.98 [facility] Comment on above: Result Comment: TSH testing is performed using different testing methodology at [facility] than at [facility]. Direct result comparisons should only be made within the same method. Performed By: #### T SH2 #### [facility] [address] [place] [address] TSH - Thyroid Stimulating Ho srinath, Serumon 07-22-2021 TSH Qn 7.49 m[IU]/L above high threshold See Below [facility] Work Phone: Comment on above: Reference Range: 0.4 4 - 3.98 TSH testing is performed using different testing methodology at [facility] than at [facility]. Direct result comparisons should only be made within the same method. VITAMIN D, 25-HYDROXYon VITAMIN D, 25-HYDROXY 36 ng/mL Normal [facility] Comment on above: Result Comment: . DEFICIENCY: < 20 NG/ML INSUFFICIENCY: 20-29 NG/ML SUFFICIENCY: 30-100 NG/ML THIS ASSAY ACCURATELY QUANTIFIES THE SUM OF VITAMIN D3, 25-HYDROXY AND VIT D2,25-HYDROXY. Performed By: #### C BC #### [facility] [address] [place] [address] Vitamin D 25-Hydroxyon 07-22 25-hydroxyvitamin D3 [Mass/Vol] 36 ng/mL Liaon [facility] Work Phone: Comment on above: .DEFICIENCY: < 20 NG /MLINSUFFICIENCY: 20-29 NG/MLSUFFICIENCY: 30-100 NG/MLTHIS ASSAY ACCURATELY QUANTIFIES THE SUM OFVITAMIN D3, 25-HYDROXY AND VIT D2,25-HYDROXY. BONE DENSITY, DEXA 1 OR MORE SITES: AXIAL SKELETONon 01-01-2021 BONE DENSITY, DEXA 1 OR MORE SITES: AXIAL SKELETON Patient Name: SHARIFA KYLE Height: 62.0 in. Weight: 170.0 lbs. Fractures: Treatments: Clinical Data: screen, Screening for Osteoporosis CLINICAL INFORMATION:Evaluate for osteopenia/osteoporosi s FINDINGS: Standard measurements were obtained utilizing a [employer] X-ray Absorptiometry bone densitometer. Data obtained includes planar bone density measurements over the Left Femur and Lumbar Spine. Comparison of measured data and standardized mean data for a young adult population (when peak bone mass occurs) results in a T score. This represents the number of standard deviations above or below the mean of a young adult population. Comparison of measured data to standards from an age adjusted population similarly yields a Z score. Electronically signed by: AMADOU DE LA ROSA MD Left Femur Neck : . Bone Density: 0.752 g/cm2 . . T Score: -2.1 . . Z Score: -1.0 . . WHO Classification: Osteopenia . . % Change: Left Femur Total : . Bone Density: 0.816 g/cm2 . . T Score: -1.5 . . Z Score: -0.8 . . WHO Classification: Osteopenia . . % Change: * AP Spine L1-L4 (L3) : . Bone Density: 1.093 g/cm2 . . T Score: -0.7 . . Z Score: 0.2 . . WHO Classification: Normal . . % Change: * . World Health Organization (WHO) criteria defines normal bone density as that which is less than 1 standard deviation (S.D.) below the mean of a young adult population. Osteopenia is defined as a measured bone density that is between 1 and 2.5 S.D. below the mean of a young adult population. Osteoporosis is defined as a measured bone density that is greater than or equal to 2.5 S.D. below the mean of a young adult population. The WHO reference diagnosis is based on postmenopausal women and men age 50 and over. . IMPRESSION: The BMD measured at Femur Neck is 0.752 g/cm2 with a T-score of -2.1. This patient is considered to have low bone mass according to World Health Organization (WHO) criteria. Bone density is between 10 and 25% below young normal. Treatment is advised. With a Z-score of -1.0, this patient's BMD is low for someone of this age. . Bone mineral density in the lumbar spine may be falsely elevated secondary to discogenic degenerative disease and degenerative facet sclerosis. Follow-up DEXA and treatment is recommended as clinically indicated. . All images and detailed analysis are available on the Radiology PACS.* *For patients with comparison exams obtained from [facility]ologic DEXA prior to January 2006, measurements presented in this report have been modified to reflect more accurate trend analysis when compared to current data obtained on the My[facility] DEXA. Electronically signed by: AMADOU DE LA ROSA MD Normal [facility] Xray Bone Density, Dexa 1 or More Siteson 01-01-2021 Xray Bone Density, Dexa 1 or More Sites FINAL REPORT Interpreted by: AMADOU DE LA ROSA MD 01/04/21 14:48 Patient Name: SHARIFA KYLE Height: 62.0 in. Weight: 170.0 lbs. Fractures: Treatments: Clinical Data: screen, Screening for Osteoporosis CLINICAL INFORMATION:Evaluate for osteope Normal [facility] Work Phone: HEMOGLOBIN A1Con 12-16-2020 Glucose [Mass/Vol] 114 mg/dL Normal [facility] Comment on above: Performed By: #### C #### [facility] [address] [place] [address] HbA1c (Bld) [Mass fraction] 5.6 % Normal [facility] Comment on above: Result Comment: Diag nosis of Diabetes-Adults Non-Diabetic: < or = 5.6% Increased risk for developing diabetes: 5.7-6.4% Diagnostic of diabetes: > or = 6.5% . Monitoring of Diabetes Age (y) Therapeutic Goal (%) Adults: >18 <7.0 Pediatrics: 13-18 <7.5 7-12 <8.0 0- 6 7.5-8.5 [employer] [employer]. Diabetes Care 33(S1), Feb 2009. Performed By: #### C BC #### [facility] [address] [place] [address] BASIC METABOLIC PANELon 10-2 -2020 Anion gap [Moles/Vol] 14 mmol/L Normal 10 - 20 [facility] Comment on above: Performed By: #### B MP #### [facility] [address] [place] [address] Calcium [Mass/Vol] 10.1 mg/dL Normal 8.6 - 10.6 [facility] Comment on above: Performed By: #### B MP #### [facility] [address] [place] [address] Chloride [Moles/Vol] 103 mmol/L Normal 98 - 107 [facility] Comment on above: Performed By: #### B MP #### [facility] [address] [place] [address] Creatinine [Mass/Vol] 0.66 mg/dL Normal 0.50 - 1.05 [facility] Comment on above: Performed By: #### B MP #### [facility] [address] [place] [address] GFR- AM. >60 Normal >60 [facility] Comment on above: Result Comment: CALC ULATIONS OF ESTIMATED GFR ARE PERFORMED USING THE MDRD STUDY EQUATION FOR THE IDMS-TRACEABLE CREATININE METHODS. CLIN CHEM 2007;53:766-72 Performed By: #### B MP #### [facility] [address] [place] [address] GFR-NON AM. >60 Normal >60 [facility] Comment on above: Performed By: #### B MP #### [facility] [address] [place] [address] Glucose [Mass/Vol] 106 mg/dL High 74 - 99 [facility] Comment on above: Performed By: #### B MP #### [facility] [address] [place] [address] HCO3 (Bld) [Moles/Vol] 26 mmol/L Normal 21 - 32 [facility] Comment on above: Performed By: #### B MP #### [facility] [address] [place] [address] Potassium [Moles/Vol] 4.0 mmol/L Normal 3.5 - 5.3 [facility] Comment on above: Performed By: #### B MP #### [facility] [address] [place] [address] Sodium [Moles/Vol] 139 mmol/L Normal 136 - 145 [facility] Comment on above: Performed By: #### B MP #### [facility] [address] [place] [address] Urea nitrogen [Mass/Vol] 16 mg/dL Normal 6 - 23 [facility] Comment on above: Performed By: #### B MP #### [facility] [address] [place] [address] Blood Pressure Cuff Sizeon 1 Last menstrual period start date pm [facility] Work Phone: Tobacco use status [facility] b) No -[facility] Work Phone: Blood Pressure Cuff Size Adult [facility] Work Phone: HEPATIC FUNCTION PANELon Albumin [Mass/Vol] 4.8 g/dL Normal 3.4 - 5.0 [facility] Comment on above: Performed By: #### C BC #### [facility] [address] [place] [address] ALP [Catalytic activity/Vol] 64 U/L Normal 33 - 110 [facility] Comment on above: Performed By: #### C BC #### [facility] [address] [place] [address] ALT [Catalytic activity/Vol] 22 U/L Normal 7 - 45 [facility] Comment on above: Result Comment: Tanya ents treated with Sulfasalazine may generate falsely decreased results for ALT. Performed By: #### C BC #### [facility] [address] [place] [address] AST [Catalytic activity/Vol] 14 U/L Normal 9 - 39 [facility] Comment on above: Performed By: #### C BC #### [place] [address] [place] [address] Bilirubin [Mass/Vol] 0.5 mg/dL Normal 0.0 - 1.2 [facility] Comment on above: Performed By: #### C BC #### [place] [address] [place] [address] Bilirubin.indirect [Mass/Vol] 0.1 mg/dL Normal 0.0 - 0.3 [facility] Comment on above: Performed By: #### C BC #### [facility] [address] [place] [address] Protein [Mass/Vol] 7.7 g/dL Normal 6.4 - 8.2 [facility] Comment on above: Performed By: #### C BC #### [facility] [address] [place] [address] Hemoglobin A1Con 12-15-2020 Glucose [Mass/Vol] 114 mg/dL [facility] zia [facility] Work Phone: HbA1c (Bld) [Mass fraction] 5.6 % [facility] Work Phone: Comment on above: Diagnosis of Diabete s-Adults Non-Diabetic: < or = 5.6% Increased risk for developing diabetes: 5.7-6.4% Diagnostic of diabetes: > or = 6.5%. Monitoring of Diabetes Age (y) Therapeutic Goal (%) Adults: >18 <7.0 Pediatrics: 13-18 <7.5 7-12 <8.0 0- 6 7.5-8.5 [employer]. Diabetes Care 33(S1), Feb 2009. Hepatic Function Panelon Albumin BCP dye [Mass/Vol] 4.8 g/dL 3.4 - 5.0 [facility] Work Phone: ALP [Catalytic activity/Vol] 64 U/L 33 - 110 [facility] Work Phone: ALT With P-5'-P [Catalytic activity/Vol] 22 U/L 7 - 45 [facility] Work Phone: Comment on above: Patients treated wit h Sulfasalazine may generate falsely decreased results for ALT. AST With P-5'-P [Catalytic activity/Vol] 14 U/L 9 - 39 [facility] Work Phone: Bilirubin [Mass/Vol] 0.5 mg/dL 0.0 - 1.2 [facility] Work Phone: Bilirubin.direct [Mass/Vol] 0.1 mg/dL 0.0 - 0.3 [facility] Work Phone: Protein [Mass/Vol] 7.7 g/dL 6.4 - 8.2 [facility] Work Phone: Laboratory - Chemistry and C hemistry - challengeon 12-15-2020 Anion gap [Moles/Vol] 14 mmol/L 10 - 20 [facility] Work Phone: Calcium [Mass/Vol] 10.1 mg/dL 8.6 - 10.6 [facility] Work Phone: Chloride [Moles/Vol] 103 mmol/L 98 - 107 [facility] Work Phone: CO2 [Moles/Vol] 26 mmol/L 21 - 32 [facility] Work Phone: Creatinine [Mass/Vol] 0.66 mg/dL See Below [facility] Work Phone: Comment on above: Reference Range: 0.5 0 - 1.05 Glucose [Mass/Vol] 106 mg/dL above high threshold 74 - 99 [facility] Work Phone: Potassium [Moles/Vol] 4.0 mmol/L 3.5 - 5.3 [facility] Work Phone: Sodium [Moles/Vol] 139 mmol/L 136 - 145 [facility] Work Phone: Urea nitrogen [Mass/Vol] 16 mg/dL 6 - 23 [facility] Work Phone: No Panel Informationon 12-15 >60 >60 [facility] Work Phone: Comment on above: CALCULATIONS OF GORDO MATED GFR ARE PERFORMED USING THE MDRD STUDY EQUATION FOR THE IDMS-TRACEABLE CREATININE METHODS. CLIN CHEM 2007;53:[id number] Negative [facility] Work Phone: TSHon 12-15-2020 TSH Qn 3.75 m[IU]/L Normal 0.44 - 3.98 [facility] Comment on above: Result Comment: TSH testing is performed using different testing methodology at [facility] than at [facility]. Direct result comparisons should only be made within the same method. Performed By: #### T SH2 #### [facility] [id number] [place] [address] TSH - Thyroid Stimulating Ho rmone, Serumon 12-15-2020 TSH Qn 3.75 m[IU]/L See Below [facility] Work Phone: Comment on above: Reference Range: 0.4 4 - 3.98 TSH testing is performed using different testing methodology at [facility] than at [facility]. Direct result comparisons should only be made within the same method. VITAMIN D, 25-HYDROXYon 11-21 VITAMIN D, 25-HYDROXY 42 ng/mL Normal [facility] Comment on above: Result Comment: . DEFICIENCY: < 20 NG/ML INSUFFICIENCY: 20-29 NG/ML SUFFICIENCY: 30-100 NG/ML THIS ASSAY ACCURATELY QUANTIFIES THE SUM OF VITAMIN D3, 25-HYDROXY AND VIT D2,25-HYDROXY. Performed By: #### V TDOH #### [facility] [id number] [place] [address] Vitamin D 25-Hydroxyon 12-15 25-hydroxyvitamin D3 [Mass/Vol] 42 ng/mL [facility] Work Phone: Comment on above: .DEFICIENCY: < 20 NG /MLINSUFFICIENCY: 20-29 NG/MLSUFFICIENCY: 30-100 NG/MLTHIS ASSAY ACCURATELY QUANTIFIES THE SUM OFVITAMIN D3, 25-HYDROXY AND VIT D2,25-HYDROXY. DIGITAL MAMM SCREENING W/ TO Weiss 12-17-2019 DIGITAL MAMM SCREENING W/ ASHLYN Patient Name: SHARIFA KYLE STUDY: DIGITAL MAMM SCREENING W/ ASHLYN; 12/17/2019 11:14 am ACCESSION NUMBER(S): [id number] ORDERING CLINICIAN: TEJAL RIDLEY INDICATION: Screening. COMPARISON: 12/12/2018, 12/11/2017 FINDINGS: 2D and tomosynthesis images were reviewed at 1 mm slice thickness. The breast tissue is heterogeneously dense, which may obscure small masses. No suspicious masses or calcifications are identified. IMPRESSION: No mammographic evidence of malignancy. BI-RADS CATEGORY: Category: 1 - Negative. Recommendation: 1 Year Screening. Patient letter sent SNORM Electronically signed by: KALEIGH RAMOS MD [facility] Hemoglobin A1Con 12-17-2019 HbA1c (Bld) [Mass fraction] 5.3 % [facility] Work Phone: Comment on above: Diagnosis of Diabete s-Adults Non-Diabetic: < or = 5.6% Increased risk for developing diabetes: 5.7-6.4% Diagnostic of diabetes: > or = 6.5%. Monitoring of Diabetes Age (y) Therapeutic Goal (%) Adults: >18 <7.0 Pediatrics: 13-18 <7.5 7-12 <8.0 0- 6 7.5-8.5 [employer]. Diabetes Care 33(S1), Feb 2009. HbA1c (Bld) [Mass fraction] 105 {MG/DL} [facility] Work Phone: Hepatic Function Panelon Albumin BCP dye [Mass/Vol] 4.6 g/dL 3.4 - 5.0 [facility] Work Phone: ALP [Catalytic activity/Vol] 61 U/L 33 - 110 [facility] Work Phone: ALT With P-5'-P [Catalytic activity/Vol] 16 U/L 7 - 45 [facility] Work Phone: Comment on above: Patients treated wit h Sulfasalazine may generate falsely decreased results for ALT. AST With P-5'-P [Catalytic activity/Vol] 14 U/L 9 - 39 [facility] Work Phone: Bilirubin [Mass/Vol] 0.5 mg/dL 0.0 - 1.2 [facility] Work Phone: Bilirubin.direct [Mass/Vol] 0.1 mg/dL 0.0 - 0.3 [facility] Work Phone: Protein [Mass/Vol] 7.4 g/dL 6.4 - 8.2 [facility] Work Phone: Lipid Panelon 12-17-2019 Cholesterol [Mass/Vol] 180 mg/dL 0 - 199 [facility] Work Phone: Comment on above: . AGE DESIRABLE BORD EUNICE HIGH HIGH 0-19 Y 0 - 169 170 - 199 >/= 200 20-24 Y 0 - 189 190 - 224 >/= 225 >24 Y 0 - 199 200 - 239 >/= 240 All ranges are based on fasting samples. Specific therapeutic targets will vary based on patient-specific cardiac risk.. Pediatric guidelines reference:Pediatrics 2011, 128(S5). Adult guidelines reference: NCEP ATPIII Guidelines, CHELSIE 2001, 258:2486-97. Venipuncture immediately after or during the administration of Metamizole may lead to falsely low results. Testing should be performed immediately prior to Metamizole dosing. Cholesterol in HDL [Mass/Vol] 49.5 mg/dL [facility] Work Phone: Comment on above: . AGE VERY LOW LOW N ORMAL HIGH 0-19 Y < 35 < 40 40-45 ---- 20- 24 Y ---- < 40 >45 ---- >24 Y ---- < 40 40-60 >60. Cholesterol in LDL [Mass/Vol] 107 mg/dL above high threshold 0 - 99 [facility] Work Phone: Comment on above: . NEAR BORD AGE JASON RABLE OPTIMAL HIGH HIGH VERY HIGH 0-19 Y 0 - 109 --- 110-129 >/= 130 ---- 20-24 Y 0 - 119 --- 120-159 >/= 160 ---- >24 Y 0 - 99 100-129 130-159 160-189 >/=190. Cholesterol.total/Cho lesterol in HDL [Mass ratio] 3.6 {ratio} [facility] Work Phone: Comment on above: REF VALUESDESIRABLE < 3.4HIGH RISK > 5.0 Triglyceride [Mass/Vol] 119 mg/dL 0 - 149 [facility] Work Phone: Comment on above: . AGE DESIRABLE BORD EUNICE HIGH HIGH VERY HIGH 0 D-90 D 19 - 174 ---- ---- ----91 D- 9 Y 0 - 74 75 - 99 >/= 100 ---- 10-19 Y 0 - 89 90 - 129 >/= 130 ---- 20-24 Y 0 - 114 115 - 149 >/= 150 ---- >24 Y 0 - 149 150 - 199 200- 499 >/= 500. Venipuncture immediately after or during the administration of Metamizole may lead to falsely low results. Testing should be performed immediately prior to Metamizole dosing. Lipid Panel 24 mg/dL 0 - 40 [facility] Work Phone: Mamm - Screening Mammogram w / Tomosynthesison 12-17-2019 MG Breast screening Interpreted by: KALEIGH RAMOS12/17/19 16:39MRN: [id number] Name: SHARIFA KYLE STUDY:DIGITAL MAMM SCREENING W/ ASHLYN; 12/17/2019 11:14 am ORDERING CLINICIAN:TEJAL RIDLEY INDICATION:Screening. COMPARISON:12/12/2018, 12/11/2017 FINDINGS:2D and tomosynthesis images were reviewed at 1 mm slice thickness. The breast tissue is heterogeneously dense, which may obscure smallmasses. No suspicious masses or calcifications are identified. IMPRESSION:No mammographic evidence of malignancy. BI-RADS CATEGORY: Category: 1 - Negative.Recommendatio n: 1 Year Screening.Patient letter sent SNORMElectronically signed by: KALEIGH RAMOS 12/17/19 16:[address] [facility] Work Phone: Metabolic Panelon 12-17-2019 Anion gap [Moles/Vol] 15 mmol/L 10 - 20 [facility] Work Phone: Calcium [Mass/Vol] 9.7 mg/dL 8.6 - 10.6 [facility] Work Phone: Chloride [Moles/Vol] 104 mmol/L 98 - 107 [facility] Work Phone: CO2 [Moles/Vol] 27 mmol/L 21 - 32 [facility] Work Phone: Creatinine [Mass/Vol] 0.73 mg/dL See Below [facility] Work Phone: Comment on above: Reference Range: 0.5 0 - 1.05 Glucose [Mass/Vol] 106 mg/dL above high threshold 74 - 99 [facility] Work Phone: Potassium [Moles/Vol] 3.8 mmol/L 3.5 - 5.3 [facility] Work Phone: Sodium [Moles/Vol] 142 mmol/L 136 - 145 [facility] Work Phone: Urea nitrogen [Mass/Vol] 13 mg/dL 6 - 23 [facility] Work Phone: Otheron 12-17-2019 >60 >60 [facility] Work Phone: Comment on above: CALCULATIONS OF GORDO MATED GFR ARE PERFORMED USING THE MDRD STUDY EQUATION FOR THE IDMS-TRACEABLE CREATININE METHODS. CLIN CHEM 2007;53:766-72 Negative [facility] Work Phone: TSH - Thyroid Stimulating Ho srinath Serumon 12-17-2019 TSH Qn 2.40 {mIU/L} See Below [facility] Work Phone: Comment on above: Reference Range: 0.4 4 - 3.98 TSH testing is performed using different testing methodology at [facility] than at other [facility]. Direct result comparisons should only be made within the same method. Vitamin D 25-Hydroxyon 12-16 Calcidiol [Mass/Vol] 35 ng/mL [facility] Work Phone: Comment on above: .DEFICIENCY: < 20 NG /MLINSUFFICIENCY: 20-29 NG/MLSUFFICIENCY: 30-100 NG/MLTHIS ASSAY ACCURATELY QUANTIFIES THE SUM OFVITAMIN D3, 25-HYDROXY AND VIT D2,25-HYDROXY. Vital Signs Date Time Vital Sign Value Performing Clinician Facility 12-20-2022 16:37-0400 Body height 154.94 cm [facility] 12-20-2022 16:37-0400 Body mass index (BMI) [Ratio] 34.4 kg/m2 [facility] 12-20-2022 16:37-0400 Body temperature 97.5 [degF] [facility] 12-20-2022 16:37-0400 Body weight 82.55 kg [facility] 12-20-2022 16:37-0400 Diastolic blood pressure 88 mm[Hg] [facility] 12-20-2022 16:37-0400 Heart rate 85 /min [facility] 12-20-2022 16:37-0400 Respiratory rate 18 /min [facility] 12-20-2022 16:37-0400 SaO2% (BldA) [Mass fraction] 98 % [facility] 12-20-2022 16:37-0400 Systolic blood pressure 130 mm[Hg] [facility] 05-10-2022 15:18-0400 Body weight 82.28 kg Alissa Sterling APRN.PNP Work Phone: [facility] 05-10-2022 15:18-0400 Diastolic blood pressure 70 mm[Hg] Alissa Sterling APRN.PNP Work Phone: [facility] 05-10-2022 15:18-0400 Systolic blood pressure 140 mm[Hg] Alissa Sterling APRN.PNP Work Phone: [facility] 01-07-2022 15:35-0500 Body height 160 cm Bethany Yap PA-C Work Phone: [facility] 01-07-2022 15:35-0500 Body weight 79.83 kg Bethany Yap PA-C Work Phone: [facility] 11-04-2021 14:06-0400 Body mass index (BMI) [Ratio] 31.21 kg/m2 Tejal L Keyana Work Phone: [facility] Work Phone: 11-04-2021 14:06-0400 Body surface area Derived from formula 1.83 m2 Tejal L Keyana Work Phone: [facility] Work Phone: 11-04-2021 14:06-0400 Body temperature 99.2 [degF] Tejal L Keyana Work Phone: [facility] Work Phone: 11-04-2021 14:06-0400 Body weight 79.92 kg Tejal L Keyana Work Phone: [facility] Work Phone: 11-04-2021 14:06-0400 Diastolic blood pressure 95 mm[Hg] Tejal L Keyana Work Phone: [facility] Work Phone: 11-04-2021 14:06-0400 Heart rate 103 /min Tejal L Keyana Work Phone: [facility] Work Phone: 11-04-2021 14:06-0400 Respiratory rate 14 /min Tejal L Keyana Work Phone: [facility] Work Phone: 11-04-2021 14:06-0400 SaO2% (BldA) [Mass fraction] 97 % Tejal L Keyana Work Phone: [facility] Work Phone: 11-04-2021 14:06-0400 Systolic blood pressure 152 mm[Hg] Tejal L Keyana Work Phone: [facility] Work Phone: 07-22-2021 10:57-0400 Body mass index (BMI) [Ratio] 30.73 kg/m2 Tejal L Keyana Work Phone: [facility] Work Phone: 07-22-2021 10:57-0400 Body surface area Derived from formula 1.82 m2 Tejal L Keyana Work Phone: [facility] Work Phone: 07-22-2021 10:57-0400 Body temperature 96.2 [degF] Tejal L Keyana Work Phone: [facility] Work Phone: 07-22-2021 10:57-0400 Body weight 78.7 kg Tejal L Keyana Work Phone: [facility] Work Phone: 07-22-2021 10:57-0400 Diastolic blood pressure 79 mm[Hg] Tejal L Keyana Work Phone: [facility] Work Phone: 07-22-2021 10:57-0400 Heart rate 97 /min Tejal L Keyana Work Phone: [facility] Work Phone: 07-22-2021 10:57-0400 Respiratory rate 14 /min Tejal L Keyana Work Phone: [facility] Work Phone: 07-22-2021 10:57-0400 SaO2% (BldA) [Mass fraction] 98 % Tejal L Keyana Work Phone: [facility] Work Phone: 07-22-2021 10:57-0400 Systolic blood pressure 146 mm[Hg] Tejal L Keyana Work Phone: [facility] Work Phone: 12-15-2020 13:12-0400 Body height 160.02 cm Tejal L Keyana Work Phone: [facility] Work Phone: 12-15-2020 13:12-0400 Body mass index (BMI) [Ratio] 29.97 kg/m2 [facility]jal L Keyana [facility] Work Phone: 12-15-2020 13:12-0400 Body surface area Derived from formula 1.8 m2 Tejal L Keyana Work Phone: [facility] Work Phone: 12-15-2020 13:12-0400 Body temperature 98.9 [degF] Tejal L Keyana Work Phone: [facility] Work Phone: 12-15-2020 13:12-0400 Body weight 76.75 kg Tejal L Keyana Work Phone: [facility] Work Phone: 12-15-2020 13:12-0400 Diastolic blood pressure 89 mm[Hg] Tejal L Keyana Work Phone: [facility] Work Phone: 12-15-2020 13:12-0400 Heart rate 100 /min Tejal L Keyana Work Phone: [facility] Work Phone: 12-15-2020 13:12-0400 Respiratory rate 16 /min Tejal L Keyana Work Phone: [facility] Work Phone: 12-15-2020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
[2025-01-02 22:26] LABS: Hematocrit 35.3 % (37-47); Hemoglobin 11.7 g/dL (12.0-15.0); Immature Granulocytes Count 0.020 X10^3/uL (0.0-0.0); Mean Corp Hgb Conc 33.1 g/dL (32-36); Mean Corpuscular Volume 92.9 fL (81-99); Mean Platelet Vol. 11.0 fl (6.2-12.0); NRBC Flagged by Analyzer 0 % (0-5); Platelet Count 459 K/mm3 (150-450); RBC Distribution Width CV 13.0 % (11.6-14.6); RBC Distribution Width SD 44.3 fl (35.1-43.9); Red Blood Count 3.80 M/mm3 (4.2-5.4); White Blood Count 10.2 K/mm3 (4.4-11.0)
[2025-01-02 22:48] LABS: AST(SGOT) 23 U/L (<=31); Alanine Aminotransfer ALT/SGPT 23 U/L (<=34); Albumin, Serum 4.4 g/dL (3.4-4.8); Alkaline Phosphatase 78 U/L (35-104); Anion Gap 12 (5-15); BUN 15 mg/dL (4-19); BUN/Creat Ratio 19.8 RATIO (10-20); Calcium,Total 9.7 mg/dL (7.6-11.0); Carbon Dioxide 26.6 mmol/L (21.0-32.0); Chloride 96 mmol/L (98-108); Cholesterol 182 mg/dL (<=200); Globulin 3.3 g/dL (2.2-4.2); Glucose 110 mg/dL (70-99); Low Density Lipoprotein Calc. 109 mg/dL; Potassium 3.3 mmol/L (3.3-5.1); Triglycerides 132 mg/dL; Very Low Density Lipoprotein 26 mg/dL (5-40); cholesterol:hdl ratio screen 3.70
== END | disposition home or self-care (01) ==
PROVIDERS: PCP Nurse Practitioner; Referring Provider Nurse Practitioner; Visit Provider Nurse Practitioner
DX: Z00.00 Encounter for general adult medical examination without abnormal findings (principal)
CPT/HCPCS: 80053; 80061; 84443; 85025